=== PATIENT | male | born 1945 | race Caucasian/White ===

== ENCOUNTER 2020-11-04 06:54 | Outpatient (REF) | payer MEDICARE, SELFPAY ==
[2020-11-04 07:44] LABS: Anion Gap 16 (12-20); Blood Urea Nitrogen 21 mg/dL (9-16); Carbon Dioxide 24 mmol/L (22-29); Chloride 106 mmol/L (96-108); Estimated Glomerular Filt Rate > 60; Glucose Fasting 133 mg/dL (60-99); Potassium 4.8 mmol/l (3.3-5.1); Sodium 141 mmol/L (135-145)
[2020-11-04 07:53] LABS: Estimated Average Glucose 143 mg/dL; Hemoglobin A1c % 6.6 %
[2020-11-04 08:51] LABS: Creatinine Urine 112.08 mg/dL
== END 2020-11-04 06:55 | disposition home or self-care (01) ==
LOC: HO.LAB 06:54
PROVIDERS: Visit Provider Family Medicine
DX: I10 Essential (primary) hypertension (principal); E11.9 Type 2 diabetes mellitus without complications
CPT/HCPCS: 80051; 82043; 82565; 82947; 83036; 84520

== ENCOUNTER 2021-04-30 06:19 | Outpatient (REF) | payer MEDICARE, SELFPAY ==
[2021-04-30 07:43] LABS: Alanine Aminotransferase 10 U/L (0-40); Anion Gap 15 (12-20); Blood Urea Nitrogen 20 mg/dL (9-16); Carbon Dioxide 26 mmol/L (22-29); Chloride 107 mmol/L (96-108); Cholesterol 131 mg/dL; Estimated Glomerular Filt Rate > 60; Glucose Fasting 140 mg/dL (60-99); HDL Cholesterol 47 mg/dL; LDL Cholesterol Calculated 61 mg/dl; Potassium 4.8 mmol/L (3.3-5.1); Sodium 143 mmol/L (135-145); Triglycerides 118 mg/dL
[2021-04-30 07:49] LABS: Estimated Average Glucose 143 mg/dL; Hemoglobin A1c % 6.6 %
[2021-04-30 08:59] LABS: Creatinine Urine 108.01 mg/dL; Microalbum/Creatinine Ratio Ur 11.1 ug/mg cr
== END 2021-04-30 06:20 | disposition home or self-care (01) ==
LOC: HO.LAB 06:19
PROVIDERS: Absent Provider Internal Medicine Endocrinology, Diabetes & Metabolism; PCP Family Medicine; Visit Provider Family Medicine
DX: I10 Essential (primary) hypertension (principal); E78.00 Pure hypercholesterolemia, unspecified; E11.9 Type 2 diabetes mellitus without complications; Z79.899 Other long term (current) drug therapy
CPT/HCPCS: 36415; 80051; 80061; 82043; 82550; 82565; 82947; 83036; 84460; 84520

== ENCOUNTER 2021-10-24 06:21 | Outpatient (REF) | payer MEDICARE, SELFPAY ==
[2021-10-24 07:33] LABS: Estimated Average Glucose 154 mg/dL
[2021-10-24 07:38] LABS: Alanine Aminotransferase 15 U/L (0-40); Anion Gap 17 (12-20); Blood Urea Nitrogen 18 mg/dL (9-16); Carbon Dioxide 27 mmol/L (22-29); Chloride 105 mmol/L (96-108); Estimated Glomerular Filt Rate > 60; Glucose Fasting 135 mg/dL (60-99); Potassium 4.7 mmol/L (3.3-5.1); Sodium 144 mmol/L (135-145)
== END 2021-10-24 06:22 | disposition home or self-care (01) ==
LOC: HO.LAB 06:21
PROVIDERS: PCP Family Medicine; Visit Provider Family Medicine
DX: I10 Essential (primary) hypertension (principal); E11.9 Type 2 diabetes mellitus without complications; E78.00 Pure hypercholesterolemia, unspecified; Z79.899 Other long term (current) drug therapy
CPT/HCPCS: 36415; 80051; 82550; 82565; 82947; 83036; 84460; 84520

== ENCOUNTER 2021-11-19 12:45 | Outpatient (RCR) | payer MEDICARE, SELFPAY | END 2021-12-10 15:09 | disposition home or self-care (01) | LOC: HO.WCC 12:45 | PROVIDERS: PCP Family Medicine; Visit Provider Physician Assistant | DX: E11.622 Type 2 diabetes mellitus with other skin ulcer (principal); L97.312 Non-pressure chronic ulcer of right ankle with fat layer exposed; E11.40 Type 2 diabetes mellitus with diabetic neuropathy, unspecified; I10 Essential (primary) hypertension; Z79.84 Long term (current) use of oral hypoglycemic drugs; Z87.891 Personal history of nicotine dependence | CPT/HCPCS: 11042; 99212 ==

== ENCOUNTER 2021-12-15 14:42 | Outpatient (REF) | payer MEDICARE, SELFPAY ==
[2021-12-15 15:03] LABS: MANUAL DIFF FLAG NO
[2021-12-15 15:07] LABS: Basophils Percent Auto 0.3 % (0-2); Eosinophils Absolute Auto 0.3 X10*3/uL (0.0-0.4); Eosinophils Percent Auto 2.7 % (0-4); Hematocrit 37.8 % (42.0-52.0); Hemoglobin 11.8 g/dl (14.0-18.0); Imm Gran Abs Auto 0.05 X10*3/uL (0.00-0.03); Imm Gran Pct Auto 0.5 % (0.0-0.4); Lymphocytes Absolute Auto 1.4 X10*3/uL (1.2-4.9); Lymphocytes Percent Auto 14.8 % (20-40); Mean Corpuscular HGB Conc 31.2 g/dl (31.0-36.0); Mean Corpuscular Hemoglobin 25.8 pg (27.0-33.0); Mean Corpuscular Volume 82.7 fL (80.0-98.0); Mean Platelet Volume 8.8 fL (9.4-12.4); Monocytes Absolute Auto 0.9 X10*3/uL (0.1-1.2); Monocytes Percent Auto 9.8 % (2-11); Neutrophils Absolute Auto 6.6 x10*3/uL (2.0-8.3); Neutrophils Percent Auto 71.9 % (45-73); Platelet Count 281 X10*3/uL (160-400); Red Blood Count 4.57 X10*6/uL (4.60-5.80); Red Cell Distribution Width 16.7 % (11.0-16.0); White Blood Count 9.2 X10*3/uL (4.8-10.8)
[2021-12-15 15:30] LABS: Lactic Acid 2.4 mmol/L (0.5-2.0)
[2021-12-15 15:35] LABS: Appearance Urine CLEAR; Color Urine YELLOW; Glucose Urine UA >=1000 MG/DL (NEG); Leukocyte Esterase Urine NEG (NEG); Nitrite Urine NEG (NEG); PH 5.5 (5.0-8.0); Specific Gravity - Urine 1.015 (1.005-1.025); Urine Blood NEG (NEG); Urine Ketones NEG (NEG); Urine Protein NEG (NEG-TRACE)
[2021-12-15 15:48] LABS: Bacteria Urine TRACE /LPF; Mucus Urine 1+ /LPF; Squamous Epithelial Cell Urine TRACE /LPF
[2021-12-16 04:27] LABS: C Reactive Protein 3.08 mg/dL (< or = 0.50)
== END 2021-12-15 14:43 | disposition home or self-care (01) ==
LOC: HO.LAB 14:42
PROVIDERS: PCP Family Medicine; Visit Provider Family Medicine
DX: R50.9 Fever, unspecified (principal)
CPT/HCPCS: 36415; 81001; 83605; 85025; 86140; 87086

== ENCOUNTER 2021-12-16 13:29 | Outpatient (REF) | payer MEDICARE, SELFPAY ==
[2021-12-16 15:11] LABS: Blood Urea Nitrogen 24 mg/dL (9-16); Estimated Glomerular Filt Rate 57
== END 2021-12-16 13:30 | disposition home or self-care (01) ==
LOC: HO.LAB 13:29
PROVIDERS: PCP Family Medicine; Visit Provider Family Medicine
DX: I10 Essential (primary) hypertension (principal)
CPT/HCPCS: 36415; 82565; 84520

== ENCOUNTER 2021-12-18 11:10 | Outpatient (REF) | payer MEDICARE, SELFPAY ==
--- NOTE | ~2021-12-18 | MR_ITS ---
EXAMINATION: MR ANKLE WITHOUT AND WITH CONTRAST, RIGHT CLINICAL INFORMATION: Fever, right ankle ulcer. Diabetes mellitus. Evaluate for osteomyelitis. COMPARISON: X-rays of the right foot March 2008 TECHNIQUE: MRI of the ankle was performed before and after the intravenous administration of 10 mL Gadavist on a high-field scanner. [id number] includes the ankle, hindfoot and midfoot. Skin marker placed of the anterolateral aspect of the ankle. FINDINGS: Subcutaneous soft tissues: There is focal decreased T1, increased T2 signal with concomitant enhancement of the subcutaneous soft tissues overlying the distal fibula. This is compatible with focal cellulitis. Minimal circumferential edema in also present. Muscles and tendons: There is generalized increased T2 signal noted throughout most of the muscles of the visualized foot with associated atrophy and fatty infiltration. This is compatible with denervation myositis. Neurovascular structures/tarsal tunnel: Normal. Ligaments: Normal. Bone and articular cartilage: There is advanced osteoarthritis involving the 2nd through 4th tarsometatarsal joints manifested by subchondral cystic change, edema and cartilage loss with marginal osteophytes. Mild osteoarthritis of the 1st metatarsophalangeal joint. Advanced osteoarthritis of the medial aspect of the naviculocuneiform joints manifested by subchondral cystic change and edema. Plantar fascia: Normal. Bursa: Normal. MR/MR ankle RT wo/w con IMPRESSION: No evidence of osteomyelitis. Focal abnormality in the subcutaneous soft tissues overlying the fibula compatible with focal cellulitis. Advanced osteoarthritis in the midfoot where degenerative changes appear to have progressed compared with an x-ray performed 2007. 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 Cannot exclude infectious myositis but this latter entity is thought to be less likely.
== END 2021-12-18 11:11 | disposition home or self-care (01) ==
LOC: HO.MRI 11:10
PROVIDERS: Visit Provider Family Medicine
DX: M86.071 Acute hematogenous osteomyelitis, right ankle and foot (principal); E87.2 Acidosis; R50.9 Fever, unspecified
CPT/HCPCS: 73723; A9585

== ENCOUNTER 2021-12-22 12:18 | Outpatient (REF) | payer MEDICARE, SELFPAY ==
[2021-12-22 12:43] LABS: MANUAL DIFF FLAG NO
[2021-12-22 12:48] LABS: Basophils Percent Auto 0.6 % (0-2); Eosinophils Absolute Auto 0.2 X10*3/uL (0.0-0.4); Eosinophils Percent Auto 3.3 % (0-4); Hematocrit 37.9 % (42.0-52.0); Hemoglobin 11.7 g/dl (14.0-18.0); Imm Gran Abs Auto 0.04 X10*3/uL (0.00-0.03); Imm Gran Pct Auto 0.6 % (0.0-0.4); Lymphocytes Absolute Auto 1.6 X10*3/uL (1.2-4.9); Lymphocytes Percent Auto 21.7 % (20-40); Mean Corpuscular HGB Conc 30.9 g/dl (31.0-36.0); Mean Corpuscular Hemoglobin 25.4 pg (27.0-33.0); Mean Corpuscular Volume 82.2 fL (80.0-98.0); Mean Platelet Volume 8.6 fL (9.4-12.4); Monocytes Absolute Auto 0.8 X10*3/uL (0.1-1.2); Monocytes Percent Auto 10.6 % (2-11); Neutrophils Absolute Auto 4.6 x10*3/uL (2.0-8.3); Neutrophils Percent Auto 63.2 % (45-73); Platelet Count 269 X10*3/uL (160-400); Red Blood Count 4.61 X10*6/uL (4.60-5.80); Red Cell Distribution Width 16.5 % (11.0-16.0); White Blood Count 7.2 X10*3/uL (4.8-10.8)
[2021-12-22 12:57] LABS: Lactic Acid 1.9 mmol/L (0.5-2.0)
== END 2021-12-22 12:19 | disposition home or self-care (01) ==
LOC: HO.LAB 12:18
PROVIDERS: PCP Family Medicine; Visit Provider Family Medicine
DX: A41.9 Sepsis, unspecified organism (principal)
CPT/HCPCS: 36415; 83605; 85025; 86140

== ENCOUNTER 2022-01-15 12:39 | Outpatient (RCR) | payer MEDICARE, SELFPAY | END 2022-02-27 16:02 | disposition home or self-care (01) | LOC: HO.WCC 12:39 | PROVIDERS: PCP Family Medicine; Visit Provider Surgery | DX: E11.621 Type 2 diabetes mellitus with foot ulcer (principal); L97.312 Non-pressure chronic ulcer of right ankle with fat layer exposed; E11.40 Type 2 diabetes mellitus with diabetic neuropathy, unspecified; I10 Essential (primary) hypertension; I25.2 Old myocardial infarction; Z87.891 Personal history of nicotine dependence | CPT/HCPCS: 97597; 99212 ==

== ENCOUNTER 2022-05-19 06:12 | Outpatient (REF) | payer MEDICARE, SELFPAY ==
[2022-05-19 06:24] LABS: MANUAL DIFF FLAG NO
[2022-05-19 07:52] LABS: Basophils Percent Auto 0.7 % (0-2); Eosinophils Absolute Auto 0.3 X10*3/uL (0.0-0.4); Eosinophils Percent Auto 4.8 % (0-4); Hematocrit 39.1 % (42.0-52.0); Hemoglobin 11.9 g/dl (14.0-18.0); Imm Gran Abs Auto 0.02 X10*3/uL (0.00-0.03); Imm Gran Pct Auto 0.4 % (0.0-0.4); Lymphocytes Absolute Auto 1.6 X10*3/uL (1.2-4.9); Mean Corpuscular HGB Conc 30.4 g/dl (31.0-36.0); Mean Corpuscular Hemoglobin 25.3 pg (27.0-33.0); Mean Platelet Volume 9.6 fL (9.4-12.4); Monocytes Absolute Auto 0.6 X10*3/uL (0.1-1.2); Monocytes Percent Auto 11.3 % (2-11); Neutrophils Absolute Auto 3.1 x10*3/uL (2.0-8.3); Neutrophils Percent Auto 54.8 % (45-73); Platelet Count 218 X10*3/uL (160-400); Red Blood Count 4.71 X10*6/uL (4.60-5.80); Red Cell Distribution Width 17.5 % (11.0-16.0); White Blood Count 5.7 X10*3/uL (4.8-10.8)
[2022-05-19 08:00] LABS: Estimated Average Glucose 143 mg/dL; Hemoglobin A1c % 6.6 %
[2022-05-19 08:27] LABS: Anion Gap 16 (12-20); Blood Urea Nitrogen 19 mg/dL (9-16); Carbon Dioxide 27 mmol/L (22-29); Chloride 105 mmol/L (96-108); Estimated Glomerular Filt Rate > 60; Glucose Fasting 150 mg/dL (60-99); Potassium 4.5 mmol/L (3.3-5.1); Sodium 143 mmol/L (135-145)
[2022-05-19 08:28] LABS: Alanine Aminotransferase 17 U/L (0-40); Albumin Level 4.4 g/dL (3.5-5.0); Alkaline Phosphatase 76 U/L (39-117); Aspartate Amino Transferase 18 U/L (5-37); Bilirubin Total 0.6 mg/dL (0.0-1.0); Calcium 9.1 mg/dL (8.4-10.2); Total Protein 7.3 g/dL (6.5-8.0)
== END 2022-05-19 06:13 | disposition home or self-care (01) ==
LOC: HO.LAB 06:12
PROVIDERS: PCP Family Medicine; Visit Provider Family Medicine
DX: I10 Essential (primary) hypertension (principal); G62.9 Polyneuropathy, unspecified; E11.9 Type 2 diabetes mellitus without complications; E78.00 Pure hypercholesterolemia, unspecified; Z79.899 Other long term (current) drug therapy
CPT/HCPCS: 36415; 80053; 83036; 85025

== ENCOUNTER 2022-07-27 13:11 | Outpatient (REF) | payer MEDICARE, SELFPAY ==
--- NOTE | ~2022-07-27 | US_ITS ---
EXAMINATION: Noninvasive assessment of the bilateral lower extremities CLINICAL INFORMATION: Nonhealing wound of the right foot TECHNIQUE: Duplex Doppler techniques with waveform analysis and measurement of velocities in the bilateral common femoral, profunda femoris, superficial femoral, popliteal and tibial arteries were performed. COMPARISON: None FINDINGS: DIRECT DUPLEX DOPPLER FINDINGS: RIGHT LEG: Common femoral artery: 106 cm/s, phasicity: Triphasic Profunda femoris artery: 51.1 cm/s, phasicity: Triphasic Superficial femoral artery (proximal): 93.8 cm/s, phasicity: Triphasic Superficial femoral artery (mid): 89.1 cm/s, phasicity: Triphasic Superficial femoral artery (distal): 62.1 cm/s, phasicity: Triphasic Popliteal artery: 45.6 cm/s, phasicity: Triphasic Posterior tibial artery: 105 cm/s, phasicity: Triphasic Peroneal artery: 66.4 cm/s, phasicity: Triphasic US/US arterial duplex LE RT IMPRESSION: Normal arterial duplex
== END 2022-07-27 13:12 | disposition home or self-care (01) ==
LOC: HO.US 13:11
PROVIDERS: Visit Provider Family Medicine
DX: S91.301S Unspecified open wound, right foot, sequela (principal); E11.42 Type 2 diabetes mellitus with diabetic polyneuropathy
CPT/HCPCS: 93926

== ENCOUNTER 2022-09-14 12:06 | Outpatient (REF) | payer MEDICARE, SELFPAY ==
[2022-09-14 13:58] LABS: Prostate Specific Antigen 1.45 ng/mL (<0.05-4.0)
== END 2022-09-14 12:07 | disposition home or self-care (01) ==
LOC: HO.LAB 12:06
PROVIDERS: PCP Family Medicine; Visit Provider Family Medicine
DX: Z12.5 Encounter for screening for malignant neoplasm of prostate (principal); R35.1 Nocturia; N40.0 Benign prostatic hyperplasia without lower urinary tract symptoms
CPT/HCPCS: 36415; 84153

== ENCOUNTER 2022-10-19 08:45 | Outpatient (RCR) | payer MEDICARE, SELFPAY | END 2022-10-27 11:48 | disposition home or self-care (01) | LOC: HO.WCC 08:45 | PROVIDERS: PCP Family Medicine; Visit Provider Physician Assistant | DX: E11.621 Type 2 diabetes mellitus with foot ulcer (principal); L97.512 Non-pressure chronic ulcer of other part of right foot with fat layer exposed; E11.40 Type 2 diabetes mellitus with diabetic neuropathy, unspecified; I10 Essential (primary) hypertension; L84 Corns and callosities; Z79.84 Long term (current) use of oral hypoglycemic drugs; Z87.891 Personal history of nicotine dependence | CPT/HCPCS: 97597; 99212 ==

== ENCOUNTER 2022-11-23 06:41 | Outpatient (REF) | payer MEDICARE, SELFPAY ==
[2022-11-23 08:26] LABS: Estimated Average Glucose 146 mg/dL; Hemoglobin A1c % 6.7 %
[2022-11-23 08:51] LABS: Alanine Aminotransferase 13 U/L (0-40); Anion Gap 16 (12-20); Aspartate Amino Transferase 16 U/L (5-37); Blood Urea Nitrogen 22 mg/dL (9-16); Carbon Dioxide 27 mmol/L (22-29); Chloride 105 mmol/L (96-108); Estimated Glomerular Filt Rate > 60; Glucose Fasting 147 mg/dL (60-99); Potassium 4.3 mmol/L (3.3-5.1); Sodium 144 mmol/L (135-145)
== END 2022-11-23 06:42 | disposition home or self-care (01) ==
LOC: HO.LAB 06:41
PROVIDERS: PCP Family Medicine; Visit Provider Family Medicine
DX: I10 Essential (primary) hypertension (principal); E11.9 Type 2 diabetes mellitus without complications; E78.00 Pure hypercholesterolemia, unspecified; Z79.899 Other long term (current) drug therapy
CPT/HCPCS: 36415; 80051; 82550; 82565; 82947; 83036; 84450; 84460; 84520

== ENCOUNTER 2022-12-07 12:32 | Outpatient (REF) | payer MEDICARE, SELFPAY ==
--- NOTE | ~2022-12-07 | XR_ITS ---
EXAMINATION: XR CHEST CLINICAL INFORMATION: Cough and wheezing COMPARISON: None TECHNIQUE: 2 views of the chest were obtained. FINDINGS: The lungs are well-expanded and clear of acute process. The heart size and pulmonary vascularity is normal. There is moderate size hiatal hernia. No gross bony abnormality seen. XR/XR chest 2V IMPRESSION: 1. No acute cardiopulmonary process seen. 2. Moderate size hiatal hernia.
== END 2022-12-07 12:33 | disposition home or self-care (01) ==
LOC: HO.XRAY 12:32
PROVIDERS: PCP Family Medicine; Visit Provider Family Medicine
DX: R05.9 Cough, unspecified (principal); R06.2 Wheezing
CPT/HCPCS: 71046

== ENCOUNTER 2023-05-28 06:26 | Outpatient (REF) | payer MEDICARE, SELFPAY ==
[2023-05-28 08:54] LABS: Estimated Average Glucose 143 mg/dL; Hemoglobin A1c % 6.6 %
[2023-05-28 09:29] LABS: Alanine Aminotransferase 12 U/L (0-40); Anion Gap 18 (12-20); Aspartate Amino Transferase 16 U/L (5-37); Blood Urea Nitrogen 27 mg/dL (9-16); Carbon Dioxide 21 mmol/L (22-29); Chloride 104 mmol/L (96-108); Cholesterol 130 mg/dL; Estimated Glomerular Filt Rate 54; Glucose Fasting 129 mg/dL (60-99); HDL Cholesterol 45 mg/dL; LDL Cholesterol Calculated 58 mg/dl; Sodium 138 mmol/L (135-145); Triglycerides 135 mg/dL
== END 2023-05-28 06:27 | disposition home or self-care (01) ==
LOC: HO.LAB 06:26
PROVIDERS: PCP Family Medicine; Visit Provider Family Medicine
DX: I10 Essential (primary) hypertension (principal); E11.9 Type 2 diabetes mellitus without complications; E78.00 Pure hypercholesterolemia, unspecified; Z79.899 Other long term (current) drug therapy
CPT/HCPCS: 36415; 80051; 80061; 82550; 82565; 82947; 83036; 84450; 84460; 84520

== ENCOUNTER 2023-08-20 10:40 | Outpatient (REF) | payer MEDICARE, SELFPAY ==
--- NOTE | 2023-08-20 10:43 | EMG_ITS ---
Chief complaint: 6-year-old, Poor stability, feet numbness, chronic back pain History of diabetes, lumbar surgery for removal of cyst per patient Reason for referral: Evaluate for neuropathy Referred by: Dr. Abelardo Araujo Procedure done: Bilateral lower extremity NCS/EMG Precautions and/or limitations: None The limb temperature was monitored continuously and remained between 32-36 degrees C during the performance of the NCS. Nerve Conduction Studies Anti Sensory Summary Table ?Stim Site NR Onset (ms) Norm Onset (ms) Peak (ms) Norm Peak (ms) O-P Amp (?V) Norm O-P Amp Site1 Site2 Delta-0 (ms) Dist (cm) Cristopher (m/s) Norm Cristopher (m/s) Left Sural Anti Sensory (Lat Mall) Calf NR <4.0 >5.0 Calf Lat Mall 14.0 Right Sural Anti Sensory (Lat Mall) Calf NR <4.0 >5.0 Calf Lat Mall 14.0 Motor Summary Table ?Stim Site NR Onset (ms) Norm Onset (ms) O-P Amp (mV) Norm O-P Amp iAmp (mV) Amp (1st) (%) Site1 Site2 Delta-0 (ms) Dist (cm) Cristopher (m/s) Norm Cristopher (m/s) Right Peroneal Motor (Ext Dig Brev) Ankle NR <4.0 >2.5 Ankle Ext Dig Brev 0.0 B Fib NR B Fib Ankle 0.0 >40 Poplt NR Poplt B Fib 0.0 >40 Left Tibial Motor (Abd Bundy Brev) Ankle NR <5 >2.5 Ankle Abd Bundy Brev 0.0 Knee NR Knee Ankle 0.0 >40 Right Tibial Motor (Abd Bundy Brev) Ankle NR <5 >2.5 Ankle Abd Bundy Brev 0.0 Knee NR Knee Ankle 0.0 >40 EMG ?Side Muscle Nerve Root Ins Act Fibs Psw Amp Dur Poly Recrt Int Pat Comment Right AbdHallucis MedPlantar S1-2 Nml Nml Nml Nml Nml 0 Nml Complete Right AntTibialis Dp Br Peron L4-5 Nml Nml Nml Nml Nml 0 Nml Complete Right PostTibialis Tibial L5, S1 Nml Nml Nml Nml Nml 0 Nml Complete Right MedGastroc Tibial S1-2 Nml Nml Nml Nml Nml 0 Nml Complete Right VastusMed Femoral L2-4 Nml Nml Nml Nml Nml 0 Nml Complete Left AbdHallucis MedPlantar S1-2 Nml Nml Nml Nml Nml 0 Nml Complete Left AntTibialis Dp Br Peron L4-5 Nml Nml Nml Incr Incr 0 Nml Complete Left PostTibialis Tibial L5, S1 Nml Nml Nml Incr Incr 0 Nml Complete Left MedGastroc Tibial S1-2 Nml Nml Nml Nml Nml 0 Nml Complete Left VastusMed Femoral L2-4 Nml Nml Nml Nml Nml 0 Nml Complete FINDINGS: No responses from bilateral peroneal nerve, right tibial nerve, bilateral sural nerves. Concentric needle EMG was performed in selected muscles of the bilateral lower extremity. Study revealed Signs of electric abnormalities as shown in the table below. Left anterior tibialis and posterior tibialis muscles showed chronic reinnervation changes. IMPRESSION: 1. This is an abnormal study. 2. 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 3. There is electrodiagnostic findings suggestive of chronic left L5-S1 radiculopathy. CLINICAL COMMENT: Consider effects of age on NCS results when interpreting this study.. Thank you for your kind referral. Yohana Russ MD, RAFFI Board Certified, [place] [employer] (ABPMR) Board Certified, [place] [employer] (ABEM) CODIN 21231 x 2 MTDD
== END 2023-08-20 10:41 | disposition home or self-care (01) ==
LOC: HO.NEURO 10:40
PROVIDERS: PCP Family Medicine; Visit Provider Family Medicine
DX: G11.19 Other early-onset cerebellar ataxia (principal); R53.1 Weakness
CPT/HCPCS: 95886; 95909

== ENCOUNTER → 2023-08-20 10:43 | Outpatient (BNV) | payer MEDICARE, SELFPAY | PROVIDERS: PCP Family Medicine; Visit Provider Physical Medicine & Rehabilitation | DX: G62.89 Other specified polyneuropathies (principal); M54.17 Radiculopathy, lumbosacral region | CPT/HCPCS: 95886; 95909 ==

== ENCOUNTER 2024-01-26 06:02 | Outpatient (REF) | payer MEDICARE, SELFPAY ==
[2024-01-26 06:18] LABS: MANUAL DIFF FLAG NO
[2024-01-26 07:37] LABS: Basophils Percent Auto 0.5 % (0-2); Eosinophils Absolute Auto 0.3 X10*3/uL (0.0-0.4); Hematocrit 37.7 % (42.0-52.0); Hemoglobin 11.5 g/dl (14.0-18.0); Imm Gran Abs Auto 0.03 X10*3/uL (0.00-0.03); Imm Gran Pct Auto 0.5 % (0.0-0.4); Lymphocytes Absolute Auto 1.8 X10*3/uL (1.2-4.9); Lymphocytes Percent Auto 28.8 % (20-40); Mean Corpuscular HGB Conc 30.5 g/dl (31.0-36.0); Mean Platelet Volume 9.4 fL (9.4-12.4); Monocytes Absolute Auto 0.7 X10*3/uL (0.1-1.2); Neutrophils Absolute Auto 3.5 x10*3/uL (2.0-8.3); Neutrophils Percent Auto 55.2 % (45-73); Platelet Count 265 X10*3/uL (160-400); Red Cell Distribution Width 17.7 % (11.0-16.0); White Blood Count 6.3 X10*3/uL (4.8-10.8)
[2024-01-26 07:43] LABS: Estimated Average Glucose 143 mg/dL; Hemoglobin A1c % 6.6 % (<6.0)
[2024-01-26 07:58] LABS: Alanine Aminotransferase 12 U/L (0-40); Anion Gap 18 (12-20); Aspartate Amino Transferase 14 U/L (5-37); Blood Urea Nitrogen 20 mg/dL (9-16); Carbon Dioxide 24 mmol/L (22-29); Chloride 107 mmol/L (96-108); Estimated Glomerular Filt Rate > 60; Glucose Fasting 133 mg/dL (60-99); Potassium 4.9 mmol/L (3.3-5.1); Sodium 144 mmol/L (135-145)
[2024-01-26 08:08] LABS: T4 Thyroxine 7.3 ug/dL (4.5-12.0)
[2024-01-26 09:29] LABS: Creatinine Urine 107.29 mg/dL; Microalbum/Creatinine Ratio Ur 9.3 ug/mg cr (<30)
== END 2024-01-26 06:03 | disposition home or self-care (01) ==
LOC: HO.LAB 06:02
PROVIDERS: PCP Family Medicine; Visit Provider Family Medicine
DX: E11.9 Type 2 diabetes mellitus without complications (principal); I10 Essential (primary) hypertension; R53.83 Other fatigue; E78.00 Pure hypercholesterolemia, unspecified; Z79.899 Other long term (current) drug therapy
CPT/HCPCS: 36415; 80051; 82043; 82550; 82565; 82570; 82947; 83036; 84436; 84450; 84460; 84520; 85025

== ENCOUNTER 2024-02-09 11:54 | Outpatient (REF) | payer MEDICARE, SELFPAY ==
[2024-02-09 12:13] LABS: MANUAL DIFF FLAG NO
[2024-02-09 13:43] LABS: Basophils Percent Auto 0.7 % (0-2); Eosinophils Absolute Auto 0.2 X10*3/uL (0.0-0.4); Eosinophils Percent Auto 2.6 % (0-4); Hematocrit 36.8 % (42.0-52.0); Hemoglobin 11.2 g/dl (14.0-18.0); Imm Gran Abs Auto 0.03 X10*3/uL (0.00-0.03); Imm Gran Pct Auto 0.5 % (0.0-0.4); Immature Retic Fraction 28.1 % (2.3-13.4); Lymphocytes Absolute Auto 1.4 X10*3/uL (1.2-4.9); Lymphocytes Percent Auto 23.7 % (20-40); Mean Corpuscular HGB Conc 30.4 g/dl (31.0-36.0); Mean Corpuscular Hemoglobin 25.1 pg (27.0-33.0); Mean Corpuscular Volume 82.5 fL (80.0-98.0); Mean Platelet Volume 9.3 fL (9.4-12.4); Monocytes Absolute Auto 0.7 X10*3/uL (0.1-1.2); Monocytes Percent Auto 11.7 % (2-11); Neutrophils Absolute Auto 3.7 x10*3/uL (2.0-8.3); Neutrophils Percent Auto 60.8 % (45-73); Platelet Count 255 X10*3/uL (160-400); Red Blood Count 4.46 X10*6/uL (4.60-5.80); Retic HGB Equivalent 26.7 pg (30.0-35.0); Reticulocyte Percent 1.6 % (0.5-1.8); Reticulocytes Absolute 0.069 X10*6/uL (0.026-0.095); White Blood Count 6.1 X10*3/uL (4.8-10.8)
[2024-02-09 14:09] LABS: C Reactive Protein 0.13 mg/dL (< or = 0.50); Iron 36 mcg/dL (45-160); Percent Iron Saturation 9 % (15-50); Total Iron Binding Capacity 397 mcg/dL (228-428); Unsaturated Iron Binding 361 ug/dL
[2024-02-09 14:23] LABS: Erythrocyte Sedimentation Rate 20 MM/HR (0-15)
[2024-02-09 14:28] LABS: Ferritin 11 ng/mL (20-250)
[2024-02-09 14:30] LABS: Folate 17.6 ng/mL (> or = 4.0); Vitamin B12 268 pg/mL (200-900)
== END 2024-02-09 11:55 | disposition home or self-care (01) ==
LOC: HO.LAB 11:54
PROVIDERS: PCP Family Medicine; Visit Provider Family Medicine
DX: D64.9 Anemia, unspecified (principal); R06.02 Shortness of breath
CPT/HCPCS: 36415; 82607; 82728; 82746; 83540; 85025; 85045; 85652; 86140

== ENCOUNTER 2024-03-13 14:57 | Outpatient (REF) | payer MEDICARE, SELFPAY ==
--- NOTE | ~2024-03-13 | XR_ITS ---
EXAMINATION: XR CHEST CLINICAL INFORMATION: Rales and cough COMPARISON: Chest radiograph 12/07/2022 TECHNIQUE: 2 views of the chest were obtained. FINDINGS: Enlarged pulmonary arteries. Lingular atelectasis. No pleural effusion. Unchanged hiatal hernia. No focal consolidation. No pneumothorax. XR/XR chest 2V IMPRESSION: No focal consolidation to suggest pneumonia.
[2024-03-13 15:15] LABS: MANUAL DIFF FLAG NO
[2024-03-13 16:13] LABS: Basophils Absolute Auto 0.1 X10*3/uL (0.0-0.2); Basophils Percent Auto 0.8 % (0-2); Eosinophils Absolute Auto 0.1 X10*3/uL (0.0-0.4); Hematocrit 40.7 % (42.0-52.0); Hemoglobin 12.7 g/dl (14.0-18.0); Imm Gran Abs Auto 0.03 X10*3/uL (0.00-0.03); Imm Gran Pct Auto 0.4 % (0.0-0.4); Lymphocytes Absolute Auto 1.5 X10*3/uL (1.2-4.9); Lymphocytes Percent Auto 21.5 % (20-40); Mean Corpuscular HGB Conc 31.2 g/dl (31.0-36.0); Mean Corpuscular Hemoglobin 27.8 pg (27.0-33.0); Mean Corpuscular Volume 89.1 fL (80.0-98.0); Mean Platelet Volume 9.4 fL (9.4-12.4); Monocytes Absolute Auto 0.7 X10*3/uL (0.1-1.2); Monocytes Percent Auto 9.5 % (2-11); Neutrophils Absolute Auto 4.6 x10*3/uL (2.0-8.3); Neutrophils Percent Auto 65.8 % (45-73); Platelet Count 242 X10*3/uL (160-400); Red Blood Count 4.57 X10*6/uL (4.60-5.80); Red Cell Distribution Width 22.3 % (11.0-16.0); White Blood Count 7.1 X10*3/uL (4.8-10.8)
[2024-03-13 17:02] LABS: Iron 32 mcg/dL (45-160); Percent Iron Saturation 9 % (15-50); Total Iron Binding Capacity 351 mcg/dL (228-428); Unsaturated Iron Binding 319 ug/dL
[2024-03-14 14:43] LABS: Prot Elec - Alpha1 0.3 g/dL (0.2-0.3); Prot Elec - Alpha2 0.9 g/dL (0.5-0.9); Prot Elec - Beta 1 0.6 g/dL (0.4-0.6); Prot Elec - Beta 2 0.6 g/dL (0.2-0.5); Prot Elec - Gamma 0.8 g/dL (0.8-1.7); Prot Elec - Total Protein 7.2 g/dL (6.1-8.1)
== END 2024-03-13 14:58 | disposition home or self-care (01) ==
LOC: HO.LAB 14:57
PROVIDERS: PCP Family Medicine; Visit Provider Family Medicine
DX: D64.9 Anemia, unspecified (principal); G62.9 Polyneuropathy, unspecified; J32.9 Chronic sinusitis, unspecified
CPT/HCPCS: 36415; 71046; 83540; 84165; 85025

== ENCOUNTER 2024-06-19 06:32 | Outpatient (REF) | payer MEDICARE, SELFPAY ==
[2024-06-19 06:51] LABS: MANUAL DIFF FLAG NO
[2024-06-19 06:58] LABS: Basophils Percent Auto 0.5 % (0-2); Eosinophils Absolute Auto 0.2 X10*3/uL (0.0-0.4); Eosinophils Percent Auto 3.9 % (0-4); Hematocrit 44.4 % (42.0-52.0); Hemoglobin 14.9 g/dl (14.0-18.0); Imm Gran Abs Auto 0.04 X10*3/uL (0.00-0.03); Imm Gran Pct Auto 0.6 % (0.0-0.4); Lymphocytes Absolute Auto 1.7 X10*3/uL (1.2-4.9); Lymphocytes Percent Auto 28.1 % (20-40); Mean Corpuscular HGB Conc 33.6 g/dl (31.0-36.0); Mean Corpuscular Volume 95.3 fL (80.0-98.0); Mean Platelet Volume 9.3 fL (9.4-12.4); Monocytes Absolute Auto 0.7 X10*3/uL (0.1-1.2); Neutrophils Absolute Auto 3.5 x10*3/uL (2.0-8.3); Neutrophils Percent Auto 55.9 % (45-73); Platelet Count 177 X10*3/uL (160-400); Red Blood Count 4.66 X10*6/uL (4.60-5.80); White Blood Count 6.2 X10*3/uL (4.8-10.8)
[2024-06-19 07:15] LABS: Anion Gap 15 (12-20); Blood Urea Nitrogen 22 mg/dL (9-16); Carbon Dioxide 27 mmol/L (22-29); Chloride 107 mmol/L (96-108); Estimated Glomerular Filt Rate 60; Glucose Fasting 145 mg/dL (60-99); Iron 107 mcg/dL (45-160); Percent Iron Saturation 33 % (15-50); Potassium 4.8 mmol/L (3.3-5.1); Sodium 144 mmol/L (135-145); Total Iron Binding Capacity 329 mcg/dL (228-428); Unsaturated Iron Binding 222 ug/dL
== END 2024-06-19 06:33 | disposition home or self-care (01) ==
LOC: HO.LAB 06:32
PROVIDERS: PCP Family Medicine; Visit Provider Family Medicine
DX: E11.9 Type 2 diabetes mellitus without complications (principal); I10 Essential (primary) hypertension; D50.9 Iron deficiency anemia, unspecified
CPT/HCPCS: 36415; 80051; 82565; 82947; 83540; 84520; 85025

== ENCOUNTER 2024-09-28 07:35 | Outpatient (REF) | payer MEDICARE, SELFPAY ==
[2024-09-28 08:36] LABS: Leukocytes Stool Qualitative NEGATIVE (NEGATIVE)
[2024-09-28 12:40] LABS: Adenovirus F 40/41 Not Detected (Not Detect.); Astrovirus Not Detected (Not Detect.); Campylobacter Not Detected (Not Detect.); Cryptosporidium Not Detected (Not Detect.); Cyclospora cayetanensis Not Detected (Not Detect.); E. coli EAEC Not Detected (Not Detect.); E. coli EPEC Not Detected (Not Detect.); E. coli ETEC Not Detected (Not Detect.); E. coli STEC Not Detected (Not Detect.); Entamoeba histolytica Not Detected (Not Detect.); Giardia lamblia Not Detected (Not Detect.); Norovirus GI/GII Not Detected (Not Detect.); Plesiomonas shigelloides Not Detected (Not Detect.); Rotavirus A Not Detected (Not Detect.); Salmonella Not Detected (Not Detect.); Sapovirus Not Detected (Not Detect.); Shigella sp./EIEC Not Detected (Not Detect.); Vibrio Not Detected (Not Detect.); Vibrio Cholerae Not Detected (Not Detect.); Yersinia enterocolitica Not Detected (Not Detect.)
[2024-10-02 21:32] LABS: Fecal Fat Qualitative Normal (Normal)
[2024-10-07 17:23] LABS: Pancreatic Elastase-1 >800 mcg/g (>200)
== END 2024-09-28 07:36 | disposition home or self-care (01) ==
LOC: HO.LNP 07:35
PROVIDERS: Visit Provider Internal Medicine Gastroenterology
DX: R19.7 Diarrhea, unspecified (principal)
CPT/HCPCS: 82656; 82705; 87177; 87209; 87507; 89055

== ENCOUNTER 2025-01-18 08:03 | Outpatient (REF) | payer MEDICARE, SELFPAY ==
--- OUTSIDE RECORDS SUMMARY | 2025-01-18 08:11 | XMS_ITS ---
Author Organization [facility] Address [address] [place] [address] Care Team Providers Care Truck Washer Name Role Phone Abelardo Araujo MD Primary Care Provider Unavailab Elaine Baca Unavailable [phone] REASON FOR VISIT small toe L foot nail is coming off Encounters Encounter Location Date Provider Diagnosis [address] [phone] 12/27/2024 Elaine Oliva Plan Of Treatment Next Appt Details Provider Name:Elaine stockton, 02/23/2025 11:45:00 AM, [address] [place] [address], [phone], Provider Name:Elaine stockton, 03/28/2025 03:30:00 PM, [address] [place] [address], [phone], Progress Notes * Julian LOVEDOB:[birth year] (79 yo M)Acc No.[id number]:12/27/2024 Patient:?Julian LOVE :1945???Age:79 Y???Sex:Male Address:[address] [place] [address] [place], [address] * true * Date:? Generated for Printi ng/Faxing/eTransmitting on:?01/18/2025 08:11 AM EDT
--- OUTSIDE RECORDS SUMMARY | 2025-01-18 08:11 | XMS_ITS | Continuity of Care Document ---
Author Organization [facility] [address] [facility] [address] [place] [address] Phone [phone] Care Team Providers Care Clinical Trials Manager Name Role Phone Abelardo Araujo M.D. Care Team Information Receive r [phone] Problems Active Problems Provider Date Type 2 [...] SIG Qnty Indications Order ing Provider Date Upfvbpqw9hz/0.5ML Solution Auto-Inject inject 0.5 milliliters weekly 2ml Rah Nichols M.D. 12/05/2024 Cjuuxo14rz Capsules 1 tab by mouth at bed 90caps Rah Nichols M.D. 02/26/2023 Atorvastatin Wdicsks29kw Tablets 1 tab by mouth every evening 270tabs Dora Jade MD Clonazepam0.5mg Tablets 1/2 tab by mouth at bed time 60tabs Abelardo Araujo M.D. Lnxtrdhtg19pz Tablets Take One Tablet By Mouth Every Morning 90tabs Rah Nichols M.D. Nifedipine ER30mg Tablets ER 24HR 1 tab by mouth every day Abelardo Araujo M.D. Quinapril RQP58kg Tablets 1 tabs by mouth every day [...] Facility Test Result H/L Range N ote Glucose Fingerstick 12/05/2024 Inhouse Glucose Fingerstick 142 Hemoglobin A1c 12/05/2024 Inhouse Hemoglobin A1c 7.3% Glucose Fingerstick 08/01/2024 Inhouse Glucose Fingerstick 185 Hemoglobin A1c 08/01/2024 Inhouse Hemoglobin A1c 6.6 % Glucose Fingerstick 03/28/2024 Inhouse Glucose Fingerstick 151 Glucose Fingerstick 08/31/2023 Inhouse Glucose Fingerstick 127 Glucose Fingerstick 02/26/2023 Inhouse Glucose Fingerstick 145 Hemoglobin A1c 10/28/2022 [facility] Hemoglobin A1c 6.8 % High (4.0-5.6) 1 Glucose Fingerstick 10/28/2022 Inhouse Glucose Fingerstick 165 Glucose Fingerstick 06/23/2022 Inhouse Glucose Fingerstick 124 1 MONITORING: In known diabetic patients, hemoglobin A1c targets should be discussed with health care provider. DIAGNOSTIC USE: The [place] [employer] (ADA) and the World Health [...]
--- OUTSIDE RECORDS SUMMARY | 2025-01-18 08:11 | XMS_ITS ---
Author Organization [facility] Address [address] [place] [address] Care Team Providers Care Die Reamer Name Role Phone Abelardo Araujo MD Primary Care Provider Elaine Esposito Unavailable [phone] Allergies Allergen (clinical drug ingredient) Drug/Non Drug Allergy documented on EMR Reaction Allergy Type Onset Date Status Bactrim hives Drug Allergy Active codeine Codeine [...] Polyneuropathy due to diabetes mellitus type I (556772030) Type 1 diabetes mellitus with diabetic polyneuropathy (E10.42) Active confirmed Vital Signs Height 6 ft in 12/27/2024 Weight 255 lbs 12/27/2024 BMI 34.58 kg/m2 12/27/2024 Blood pressure systolic 117 mm Hg 12/27/19 25 Blood pressure diastolic 72 mm Hg 025 Encounters Encounter Location Date Provider Diagnosis [facility] [address] [phone] 12/27/2024 Elaine Oliva Type 2 diabetes mellitus [...] Reason: Provider Name:Elaine stockton, 02/23/2025 11:45:00 AM, [address] [place] [address], [phone], Provider Name:Elaine stockton, 03/28/2025 03:30:00 PM, [address] [place] [address], [phone], Procedure Notes * Category Sub-Category Detail Notes [...] and future surgical procedures to prevent recurrence (66368) Anesthesia was deferred - NEURO ROSLYN: patient [...] instrumentation by the physician of record - 12209 Debride Nails 1-5 Procedure: Due to the [...] necessary to maintain effective symptomatic relief - 67664 Nail Reduction Nail Reduction (-27) Trimming o [...] * Julian LOVEDOB:[birth year] (79 yo M)Acc No.[id number]:12/27/2024 Progress Note Patient:?Julian LOVE Provider:?Elaine Oliva DPM :1945???Age:79 Y???Sex:Male Vitaliy e:12/27/2024 Address:[address] [place], [place] [phone] Pcp:Abelardo Araujo MD Subjective: * Chief Complaints: [...] rouble?denies.?Confusion?denies.?Fainting/blackouts?denies.?Tingling?admits.?Jonas mors?denies.? * Medical History:? * Surgical History:?alexander wilkes er 1995 * Hospitalization/Major Diagno stic Procedure:?Denies Past Hospitalization * Family History:?Mother: dece ased.?Father: , diagnosed with Unspecified heart disease, Diabetic - NIDDM.? * Social History:?Tobacco Use:?Tobacco use other than smoking?Are you an other tobacco user??No ?Tobacco Control (Standard)?Tobacco use:?Nonsmoker ???Miscellaneous:?Caffeine: no. ?Children: yes, 4. ?Exercise: yes, walking. ?Marital status: . 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 * Medications:?TakingMounjaro Iron clonazePAM 0.5 MG Tablet [...] * Vitals:?Ht: 6 ft, Wt: 255, B SC: 34.58, Shoe size: 11B, BP: 117/72 mm [...] necessary to maintain effective symptomatic relief - 87033.?Keratoma Treatment:?Parring or Cutting of Benign Hyperkeratotic Lesion(s)?(-56) [...] instrumentation by the physician of record - 93082.?Nail Avulsion:?Location?Total nail, T4.?Anesthesia?was deferred - NEUROPATHY: patient [...] and future surgical procedures to prevent recurrence (52079).?Nail Reduction:?Nail Reduction?(-27) Trimming of all dystrophic nails [...] ?), were debrided by the phisician of record to reduce/remove overall nail length and girth, by manual and electrical means with use of a nail nipper and/or dremel, to more viable healthy nail plate or bed tissue - G0127.? * Procedure Codes:?G0127 RENATA ING DYSTROPHIC NAILS ANY #, Modifiers: XS 53880 DEBRIDE NAIL, 1-5, Modifiers: XS 19175 TRIM SKIN LESIONS, 2 TO 4, Modifiers: XS 77601 Avulsion Plate, Modifiers: XS , T4 * [...] * Sign off status: Completed true * Provider:?Elaine Oliva, DPM Date:? Generated for Michael vernon/Priscilla/eTdelmarsmitting on:?01/18/2025 08:11 AM EDT History and Physical Notes * HPI (History [...] visit today ORIENTED: person, place, and t inés Ophthalmology Referral DIABETES EYE EXAM Procedure Perform [...]
--- OUTSIDE RECORDS SUMMARY | 2025-01-18 08:11 | XMS_ITS | Patient Health Record ---
[facility] Address [address] [place] [address] Care Team Providers Care Strain Technician Name Role Phone Abelardo Araujo MD Primary Care Provider Unavailab Elaine Baca Unavailable [phone] Allergies Allergen (clinical drug ingredient) Drug/Non Drug Allergy documented on EMR Reaction Allergy Type Onset Date Status Bactrim hives Drug Allergy Active codeine Codeine Unknown Drug Allergy Active Results Component Value Reference Range Notes HEMOGLOBIN A1C (GLYCOHEMOGLO BIN) Reviewed date:12/27/2024 03:43:04 PM Interpretation: Performing Lab: Notes/Report: HEMOGLOBIN A1C % (HH) 7.2 Reason For Referral No Information Medications Medication [...] Problem Status W/U Status Risk Notes Problem 73509248638839917 Pressure ulcer of right ankle, unstageable (L89.510) Active confirmed Problem 063799638 Pressure ulcer of right ankle, stage 1 (L89.511) Active confirmed Problem Polyneuropathy due to type 2 diabetes mellitus (387059464) Type 2 diabetes mellitus with diabetic polyneuropathy (E11.42) Active confirmed Problem Polyneuropathy due to diabetes mellitus type I (361475939) Type 1 diabetes mellitus with diabetic polyneuropathy (E10.42) Active confirmed Problem 61509374 Type 2 diabetes mellitus with polyneuropathy (E11.42) Active confirmed Problem Neuropathic ulcer of right heel, 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) Active confirmed Response to treatment Problem 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) Active confirmed Response to treatment Problem 64861073059198554 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522 and Pressure ulcer of right ankle, unstageable L89.[address] [address] 04/18/2024 Elaine Perica Type 2 diabetes mellitus with diabetic polyneuropathy E11.42 ; Neuropathic ulcer of right ankle L97.319 and Pressure ulcer of right ankle, unstageable L89.[address] [address] 06/16/2024 Elaine Perica Type 2 diabetes mellitus with diabetic polyneuropathy E11.42 and Pressure ulcer of right ankle, unstageable L89.[address] [address] 12/27/2024 Elaine Perica Type 2 diabetes mellitus with diabetic polyneuropathy E11.42 ; Contusion of lesser toe of left foot with damage to nail, initial encounter S90.222A ; Tinea unguium B35.1 and Ingrown nail L60.[address] [address] 03/17/2024 Elaine Oliva [facility] [address] [address] 03/29/2024 Elaine Perica [facility] [place] [address] [place] [address] 03/29/2024 Elaine Perica [facility] [address] [address] 04/12/2024 Elaine Perica [facility] [place] [address] [place] [address] 04/18/2024 Elaine Perica [facility] [place] [address] [facility] [address] [place] [address] 08/25/2024 Elaine Perica [facility] [place] [address] [place] [address] 12/11/2024 Elaine Perica [facility] [address] [address] 12/27/2024 Elaine Wilks Encounter Date Diagnosis (ICD Code) Assessment Notes [...] Details Provider Name:Elaine stockton, 02/23/2025 11:45:00 AM, [address] [place] [address], [phone], Provider Name:Elaine stockton, 03/28/2025 03:30:00 PM, [address] [place] [address], [phone], Insurance Providers Payer Name Payer Address Payer Phone Subscriber Number Group Number Insured Name Patient Relationship to Insured Coverage Start Date Coverage End Date [employer] [place] [employer]vantage [facility] [address] [place] [address] [id number] Julian Vaughan Self - patient is the insured Medical (General) History Medical History History ICD Code Back,Hip,and Knee pain Diabetic Gall bladder problems Heart disease Hiatal hernia High blood pressure Reflux ( GERD) Measles Mumps Chicken pox Replacement Heart Valves Surgical History Surgery Date(Month/Year) gall bladder 1995
--- OUTSIDE RECORDS SUMMARY | 2025-01-18 08:12 | XMS_ITS | Patient Health Record ---
Author Organization [facility] Address [address] [place] [address] Care Team Providers Care Hog Grader Name Role Phone Vna CHRIS, Abelardo Primary Care Provider Siva Chan Jr Unavailable [phone] Allergies Allergen (clinical drug ingredient) Drug/Non Drug Allergy documented on EMR Reaction Allergy Type Onset Date Status Sulfa Unknown Drug Allergy Active codeine Codeine Sulfate Unknown Drug Allergy A ctive Results Component Value Reference Range Notes Leukocytes Stool Qualitative Reviewed date:09/28/2024 10:05:12 AM Interpretation: Performing Lab:[facility], [address] [place] [phone] Notes/Report: Leukocytes Stool Qualitative NEGATIVE NEGATIVE Pancreatic Elastase-1 Reviewed date:10/09/2024 04:23:21 PM Interpretation: Performing Lab:[facility], [address] [place] [phone] Notes/Report: Pancreatic Elastase-1 >800 >200 mcg/g E-1 mcg/g feces Interpretation <100 Severe exocrine pancreatic insufficiency 100-200 Mild to moderate exocrine pancreatic insufficiency >200 Normal THIS TEST WAS PERFORMED AT: [facility] [address] [place] [address] PÉREZ ODOM MD,PHD,RAFFI Fecal Fat Qualitative Reviewed date:10/09/2024 04:22:53 PM Interpretation: Performing Lab:[facility], [address] [place] [phone] Notes/Report: Fecal Fat Qualitative Normal Normal THIS TEST WAS PERFORMED AT: [facility] [id number] [place] [phone] AURY STEVENS MD,PHD Ova and Parasite Reviewed date:10/09/2024 04:22:09 PM Interpretation: Performing Lab:[facility], [address] [place] [phone] Notes/Report: Ova and Parasite SEE NOTE OVA AND PARASITES, CONC AND PERM SMEAR Micro Number: [id number] Test Status: Final Specimen Source: Stool Specimen [...] infection. For additional information, please refer to https://education.Opentopic/faq/FII825 (This link is being provided for informational/ educational purposes only.) THIS TEST WAS PERFORMED AT: [facility] [address] [address] RACHEAL HEBERT MD GI PANEL Reviewed date:10/04/2024 08:29:30 AM Interpretation: Performing Lab:[facility], [address] [place] [phone] Notes/Report: Campylobacter Not Detected Not Detect. Plesiomonas [...] is performed by Multiplexed PCR, utilizing the [employer] Array. Reason For Referral No Information Medications Medication [...] jennifer l Orally Once a day Unknown Immunizations Vaccine Route Administration Date Status Comme nts Influenza Unknown 07/09/2018 Administered Influenza Unknown 09/13/2024 Administered Social History Alcohol Screen Question Answer Notes Did you [...] drinks (0 point) Points 4 Interpretation Positive Section Notes: Tobacco use is negative, alc ohol use is occasional. Tobacco use is negative, alc ohol use is occasional. Tobacco use is negative over 40 years former smoker, alcohol use is occasional. Tobacco use is negative over 40 years former smoker, alcohol use is occasional. Tobacco use is negative over 40 years former smoker, alcohol use is occasional. Problems Problem Type SNOMED Code ICD Code Onset Dates Problem Status W/U Status Risk Notes Problem 611040773 Change in bowel habits (R19.4) Active confirmed Problem 90598138 Hemorrhoids, unspecified hemorrhoid type (K64.9) Active confirmed Problem 38522105 Diarrhea, unspecified type (R19.7) Active confirmed Problem 289672919 Gastroesophageal reflux disease, unspecified whether esophagitis present (K21.9) Active confirmed Vital Signs Temperature 97.1 degrees Fahrenheit 10/02/2024 Blood pressure diastolic 00 mm Hg 10/02/2024 Height 72 in 10/02/2024 Blood pressure systolic 000 mm Hg 10/02/2024 Weight 255 lbs 10/02/2024 BMI 34.58 kg/m2 10/02/2024 Encounters Encounter Location Date Provider Diagnosis [facility] [address] [place] [address] 10/02/2024 Siva Coates Jr Diarrhea, unspecified type R19.7 and Gastroesophageal reflux disease, unspecified whether esophagitis present K21.9 [facility] [address] [place] [address] 09/12/2024 Siva Coates Jr Diarrhea, unspecified type R19.7 [facility] [address] [place] [address] 10/09/2024 Siva Coates Jr [facility] [address] [place] [address] 01/04/2025 Siva Coates Jr Assessments Encounter Date Diagnosis (ICD Code) Assessment Notes Treatment Notes Treatment Clinical Notes Section Notes 10/02/2024 Diarrhea, unspecified type (ICD-10 - R19.7) Diarrhea - what to ask your health care provider - adult material was printed Currently, he is doing well. Diarrhea appears improved since stopping metformin. He will remain off this and followup with his sanitation engineer . We will await the rest of his stool testing. We did discuss colonoscopy today. He prefers to defer this at this time. Reflux symptoms are well-controlled on pantoprazole and he will continue this. 10/02/2024 Gastroesophageal reflux disease, unspecified whether esophagitis present (ICD-10 - K21.9) Currently, he is doing well. Diarrhea appears improved since stopping metformin. He will remain off this and followup with his sanitation engineer . We will await the rest of his stool testing. We did discuss colonoscopy today. He prefers to defer this at this time. Reflux symptoms are well-controlled on pantoprazole and he will continue this. 09/12/2024 Diarrhea, unspecified type (ICD-10 - R19.7) Plan Of Treatment Pending Test Test Name Order Date STOOL WBC 09/12/2024 OVA & PARASITES (O&P) 09/12/2024 PANCREATIC ELASTASE 09/12/2024 FECAL FAT QUAL 09/12/2024 XR BARIUM SWALLOW-ESOPHAGUS 10/08/2011 XR GI SERIES 03/08/2019 GI PANEL 09/12/2024 Future Test Test Name Order Date UPPER GI ENDOSCOPY 03/08/2019 Next Appt Details Provider Name:Siva reyna Jr, 02/02/2025 11:50:00 AM, [address] [facility] , [place], [place], [phone], Insurance Providers Payer Name Payer Address Payer Phone Subscriber Number Group Number Insured Name Patient Relationship to Insured Coverage Start Date Coverage End Date [facility] [address] [place] [phone] [id number] PUESCHEL , SCOTT Self - patient is the insured Medical (General) History Medical History History ICD Code Hypertension Gastroesophageal reflux dise ase, EGD 06/26, hiatal hernia with Fareed erosions Stress Coronary artery disease, history of [place] w ith stent placement 11/2016 RITA/CPAP Seasonal allergies Diabetes mellitus colonoscopy 04/06/12 for heme -positive stools, findings: diverticulosis and hemorrhoids, followup optional. Surgical History Surgery Date(Month/Year) cholecystectomy stent/ one artery 11/2016
--- OUTSIDE RECORDS SUMMARY | 2025-01-18 08:12 | XMS_ITS ---
Author Organization [facility] Address [address] [place] [address] Care Team Providers Care Green Building Engineer Name Role Phone Van CHRIS, Abelardo Primary Care Provider Unavailab Siva Harden Jr REASON FOR VISIT colonoscopy Encounters Encounter Location Date Provider Diagnosis [facility] [address] [place] [address] 01/04/2025 Siva Coates Jr Plan Of Treatment Next Appt Details Provider Name:Siva reyna Jr, 02/02/2025 11:50:00 AM, [address] [place] [address], [phone], Progress Notes * JOBYRAINGRISELDASCOTTDOB:[birth year] (79 yo M)Acc No.[id number]:01/04/2025 Patient:?SCOTT LOVE :1945???Age:79 Y???Sex:Male Address:[address] [place], [place] [address] [address] * true * Date:? Generated for Alisei janeen/Priscilla/eTransmitting on:?01/18/2025 08:12 AM EDT
--- OUTSIDE RECORDS SUMMARY | 2025-01-18 08:12 | XMS_ITS ---
Author Organization [facility] Address [address] [place] [address] Care Team Providers Care Surveyor Helper Name Role Phone Abelardo Araujo MD Primary Care Provider Unavailab Elaine Baca [phone] REASON FOR VISIT toe is black Encounters Encounter Location Date Provider Diagnosis [address] [address] 12/11/2024 Elaine Oliva Plan Of Treatment Next Appt Details Provider Name:Elaine stockton, 02/23/2025 11:45:00 AM, [address] [place] [address], [phone], Provider Name:Elaine stockton, 03/28/2025 03:30:00 PM, [address] [place] [address], [phone], Progress Notes * Julian LOVEDOB:[birth year] (79 yo M)Acc No.[id number]:12/11/2024 Patient:?Julian LOVE :1945???Age:79 Y???Sex:Male Address:[address] [place], [place] [address], [address] * true * Date:? Generated for Printi ng/Faxing/eTransmitting on:?01/18/2025 08:11 AM EDT
--- OUTSIDE RECORDS SUMMARY | 2025-01-18 08:12 | XMS_ITS ---
Author Organization [facility] Address [address] [place] [address] Care Team Providers Care Sewer Pipe Cleaner Name Role Phone Van CHRIS, Abelardo Primary Care Provider Unavailab Siva Harden Jr REASON FOR VISIT labs Encounters Encounter Location Date Provider Diagnosis [facility] [address] [place] [address] 10/09/2024 Siva Coates Jr Plan Of Treatment Next Appt Details Provider Name:Siva reyna Jr, 02/02/2025 11:50:00 AM, [address] [place] [address], [phone], Progress Notes * JOBYRAINRICHARDSCOTT ReyesDOB:[birth year] (79 yo M)Acc No.[id number]:10/09/2024 Patient:?SCOTT LOVE :1945???Age:79 Y???Sex:Male Address:[address] [place], [place] [address] [address] * true * Date:? Generated for Alisei janeen/Priscilla/eTransmitting on:?01/18/2025 08:12 AM EDT
--- OUTSIDE RECORDS SUMMARY | 2025-01-18 08:12 | XMS_ITS ---
Author Organization [facility] Address [address] [place] [id number] Care Team Providers Care Inventory Clerk Name Role Phone Van CHRIS, Abelardo Primary Care Provider UnavailSiva Miller Jr Unavailable [phone] Allergies Allergen (clinical drug ingredient) Drug/Non Drug Allergy documented on EMR Reaction Allergy Type Onset Date Status Sulfa Unknown Drug Allergy Active codeine Codeine Sulfate Unknown Drug Allergy A ctive REASON FOR VISIT Patient presents today for diarrhea Medications Medication SIG (Take, Route, Frequency, Duration) [...] 2 Orally Once a day 10/08/2011 Unknown Social History Alcohol Screen Question Answer Notes [...] Interpretation Positive Section Notes: Tobacco use is negative over 40 years former smoker, alcohol use is occasional. Problems Problem Type SNOMED Code ICD Code Onset Dates Problem Status W/U Status Risk Notes Problem [id number] Gastroesophageal reflux disease, unspecified whether esophagitis present (K21.9) Active confirmed Vital Signs Temperature 97.1 degrees Fahrenheit 10/02/20 24 Blood pressure systolic 000 mm Hg 10/02/20 24 Blood pressure diastolic 00 mm Hg 024 Height 72 in 10/02/2024 Weight 255 lbs 10/02/2024 BMI 34.58 kg/m2 10/02/2024 Encounters Encounter Location Date Provider Diagnosis [facility] [address] [place] [id number] 10/02/2024 Siva Coates Jr Diarrhea, unspecified type R19.7 and Gastroesophageal reflux disease, unspecified whether esophagitis present K21.9 Assessments Encounter Date Diagnosis (ICD Code) Assessment Notes Treatment Notes Treatment Clinical Notes Section Notes 10/02/2024 Diarrhea, unspecified type (ICD-10 - R19.7) Diarrhea - what to ask your health care provider - adult material was printed Currently, he is doing well. Diarrhea appears improved since stopping metformin. He will remain off this and followup with his petroleum analyst . We will await the rest of [...] remain off this and followup with his petroleum analyst . We will await the rest of his stool testing. We did discuss colonoscopy today. He prefers to defer this at this time. Reflux symptoms are well-controlled on pantoprazole and he will continue this. Plan Of Treatment Treatment Notes Assessment Notes Diarrhea, unspecified type Diarrhea - wh at to ask your health care provider - adult material was printed Next Appt Details Follow Up: 1 Year, Reason: Provider Name:Siva reyna , 02/02/2025 11:50:00 AM, [address] [place] [address], [phone], Progress Notes * SCOTT LOVEDOB:[birth year] (79 yo M)Acc No.[id number]:10/02/2024 Progress Notes Patient:?SCOTT LOVE Provider:?Siva Coates MD :1945???Age:79 Y???Sex:Male Vitaliy e:10/02/2024 Address:[address] [place], [place] [id number] Pcp:Abelardo Araujo MD Subjective: * Chief Complaints: * ???1. Patient presents today for diarrhea. * HPI: ???New symptom(s):? Patient is a pleasant 79-year-old man seen today in consultation. He reports symptomatic diarrhea over the last 4-5 months. Stools can be loose and sometimes float in the toilet. He has not lost weight. He has not changed his diet. He has been on metformin for diabetes which she stopped approximately 2 weeks ago. Since this time, his diarrhea has resolved. He does note occasional bright red blood on the tissue paper which he attributes to hemorrhoids. He returned stool specimens which have been negative for any sign of infection including white blood cells. Pancreatic enzyme testing is pending as this parasite testing. We discussed this today. His last colonoscopy was in 2011 for heme-positive stools and showed diverticulosis and hemorrhoids. We reviewed this today. ?He reports reflux symptoms are under good control on pantoprazole 40 mg daily. He has no dysphagia, hematemesis, or melena. Weight and appetite have been stable. * ROS:?General/Constitutional:?Change in appetite?denies.?Fatigue?denies.?ENT:?Patient denies?difficulty swallowing.?Respiratory:?Patient denies?shortness of breath.?Cardiovascular:?Patient denies?chest pain.?Gastrointestinal:?Comments?See HPI for details.?Genitourinary:?Difficulty urinating?denies.?Incontinence?denies.?Musculoskeletal:?Patient denies?muscle aches.?Skin:?Patient denies?pruritis.?Neurologic:?Patient denies?low back pain.?Psychiatric:?Patient denies?mental or physical abuse.? * Medical History:?Hypertensio n, Gastroesophageal reflux disease, EGD 06/26, hiatal hernia with Fareed erosions, Stress, Coronary artery disease, history of WI with stent placement 11/2016, RITA/CPAP, Seasonal allergies, Diabetes mellitus, Colonoscopy 04/06/12 for heme-positive stools, findings: diverticulosis and hemorrhoids, followup optional.. * Surgical History:?cholecyste ctomy , stent/ one artery 11/2016. * Family History:?Father: dece ased, diagnosed with Heart disease.?Mother: 93 yrs, diagnosed with HTN (hypertension).? Family history is negative for GI malignancy. * Social History:?Tobacco Use:?Tobacco Use/Smoking?Are you a: former smoker , How long has it been since you last smoked?: > 10 years.?Drugs/Alcohol:?Alcohol Screen?Did you have a drink containing alcohol in the past year??Yes,?How often did you have a drink containing alcohol in the past year??4 or more times a week (4 points),?How many drinks did you have on a typical day when you were drinking in the past year??1 or 2 drinks (0 point),?Points?4,?Interpretation?Positive.?Miscellaneous:?Marital status: . Occupation: retired. ???Tobacco use is negative over 40 years former smoker, alcohol use is occasional. * Medications:?Taking Probioti c - Capsule as directed Orally , Taking Aspirin 81 81 MG Tablet Delayed Release 1 tablet Orally Once a day, Taking Ferrous Sulfate 325 MG Capsule as directed Orally , Taking Flomax 0.4 MG Capsule Extended Release 24 Hour 1 capsule 30 minutes after the same meal each day Orally Once a day, Taking KlonoPIN 0.5 MG Tablet 1 tablet Orally Once a day, Taking Nifediac CC 30 MG Tablet Extended Release 1 tablet on an empty stomach Orally Once a day, Taking Protonix 40 MG Tablet Delayed Release 1 tablet 1/2 to 1 hour before morning meal Orally Once a day, Discontinued metFORMIN HCl 1000 MG Tablet 1 tablet with meals Orally Twice a day, Unknown NIFEdipine 30 MG (OSM) Tablet Extended Release 1 tablet on an empty stomach Orally Once a day, Unknown Bisoprolol-hydroCHLOROthiazide 5-6.25 MG Tablet 1 tablet Orally Once a day, Unknown Jardiance 10 MG Tablet 1 tablet Orally Once a day, Unknown Fish Oil 1000 MG Capsule 1 capsule Orally Once a day, Unknown Omeprazole 20 MG Capsule Delayed Release 2 Orally Once a day, Unknown Vitamin C 1000 MG Tablet 1 tablet Orally twice a day, Unknown Multivitamin Adults - Tablet Orally , Unknown ZyrTEC Allergy 10 MG Tablet 1 tablet Orally Once a day, Unknown Atorvastatin Calcium 40 MG Tablet 1 tablet Orally Once a day, Unknown CoQ-10 100 MG Capsule 1 capsule with a meal Orally Once a day, Unknown Quinapril HCl 40 MG Tablet 1 tablet Orally Once a day, Unknown Pantoprazole Sodium 40 MG Tablet Delayed Release 1 tablet Orally Once a day * Allergies:?Sulfa, Codeine Dawson lfate. Objective: * Vitals:?Wt: 255 lbs, Ht: 72 in, BMI:34.58 Index, BP: 000/00 mm Hg, Temp: 97.1. * Examination: ???General Examination: ?GENERAL APPEARANCE:?in no acute distress.?HEAD:?normocephalic.?EYES:?sclera non-icteric.?ORAL CAVITY:?mucosa moist.?NECK/THYROID:?no lymphadenopathy.?SKIN:?anicteric.?HEART:?S1, S2 normal, no murmurs.?LUNGS:?clear to auscultation bilaterally.?CHEST:?normal shape and expansion.?ABDOMEN:?soft, nontender, nondistended, bowel sounds present, no organomegaly .?EXTREMITIES:?no clubbing, cyanosis, or edema.?PSYCH:?cognitive function intact.? Assessment: * Assessment: 1.?Diarrhea, unspecified typ e - R19.7 (Primary)?2.?Gastroesophageal reflux disease, unspecified whether esophagitis present - K21.9? Currently, he is doing well. Diarrhea appears improved since stopping metformin. He will remain off this and followup with his petroleum analyst. We will await the rest of his stool testing. We did discuss colonoscopy today. He prefers to defer this at this time. Reflux symptoms are well-controlled on pantoprazole and he will continue this. Plan: * Treatment: * Procedure Codes:?G9903 Pt sc rn tbco id as non user, G9745 DOC RSN FOR NOT SCREEN/REC F/U HBP * Preventive Medicine:? ??Counseling:?Care goal follow-up plan:?Above Normal BMI Follow-up?Giving encouragement to exercise,?BMI management provided?Yes.? ??Screenings:?Fall Risk Screening?Fall Risk Assessment:?No falls in the past year,?Screening:?No falls in the past year,?Assessment:?Not performed, no reason specified,?Plan of Care:?Not documented, no reason specified.? * Follow Up:?1 Year * * Sign off status: Completed true * Provider:?Siva Coates MD Date:?12/02/2023 Generated for Michael vernon/Priscilla/eTdelmarsmdoni on:?01/18/2025 08:12 AM EDT History and Physical Notes * HPI (History of Present Illness) Category Sub-Category Detail Notes Category Not es New symptom(s) Patient is a pleasant 79-year-old man seen today in consultation. He reports symptomatic diarrhea over the last 4-5 months. Stools can be loose and sometimes float in the toilet. He has not lost weight. He has not changed his diet. He has been on metformin for diabetes which she stopped approximately 2 weeks ago. Since this time, his diarrhea has resolved. He does note occasional bright red blood on the tissue paper which he attributes to hemorrhoids. He returned stool specimens which have been negative for any sign of infection including white blood cells. Pancreatic enzyme testing is pending as this parasite testing. We discussed this today. His last colonoscopy was in 2011 for heme-positive stools and showed diverticulosis and hemorrhoids. We reviewed this today. He reports reflux symptoms are under good control on pantoprazole 40 mg daily. He has no dysphagia, hematemesis, or melena. Weight and appetite have been stable. Examination Category Sub-Category Detail Notes Category Not es General Examination GENERAL APPEARANCE: in no acute di stress HEAD: normocephalic EYES: sclera non-icteric NECK/THYROID: no lymphadenopathy HEART: S1, S2 normal, no mu rmurs CHEST: normal shape and exp ansion LUNGS: clear to auscultatio n bilaterally ABDOMEN: soft, nontender, non distended, bowel sounds present, no organomegaly SKIN: anicteric EXTREMITIES: no clubbing, cyanosi s, or edema PSYCH: cognitive function i ntact ORAL CAVITY: mucosa moist
[2025-01-18 09:40] LABS: Creatinine Urine 98.88 mg/dL
[2025-01-18 09:49] LABS: Estimated Average Glucose 140 mg/dL; Hemoglobin A1c % 6.5 % (<6.0)
[2025-01-18 10:12] LABS: Alanine Aminotransferase 26 U/L (0-40); Anion Gap 14 (12-20); Aspartate Amino Transferase 24 U/L (5-37); Blood Urea Nitrogen 23 mg/dL (9-16); Carbon Dioxide 22 mmol/L (22-29); Chloride 109 mmol/L (96-108); Estimated Glomerular Filt Rate > 60; Glucose Fasting 140 mg/dL (60-99); Potassium 4.2 mmol/L (3.3-5.1); Sodium 141 mmol/L (135-145)
== END 2025-01-18 08:04 | disposition home or self-care (01) ==
LOC: HO.LAB 08:03
PROVIDERS: PCP Family Medicine; Visit Provider Family Medicine
DX: I10 Essential (primary) hypertension (principal); E11.9 Type 2 diabetes mellitus without complications; E78.00 Pure hypercholesterolemia, unspecified; Z79.899 Other long term (current) drug therapy
CPT/HCPCS: 36415; 80051; 82043; 82550; 82565; 82570; 82947; 83036; 84450; 84460; 84520

== ENCOUNTER 2025-02-02 09:22 | Day surgery (SDC) | payer MEDICARE, SELFPAY ==
--- OUTSIDE RECORDS SUMMARY | 2025-01-05 11:13 | XMS_ITS ---
Author Organization [facility] Address [address] [place] [id number] Care Team Providers Care Oncology Rep Specialist Name Role Phone Abelardo Araujo MD Primary Care Provider Unavailab Elaine Baca Unavailable [phone] REASON FOR VISIT small toe L foot nail is coming off Encounters Encounter Location Date Provider Diagnosis [address] [id number] 12/27/2024 Elaine Oliva Plan Of Treatment Next Appt Details Provider Name:Elaine stockton, 02/23/2025 11:45:00 AM, [address] [place] [address], [id number], Provider Name:Elaine stockton, 03/28/2025 03:30:00 PM, [address] [place] [address], [phone], Progress Notes * Julian LOVEDOB:[birth year] (79 yo M)Acc No.[id number]:12/27/2024 Patient:?Julian LOVE :1945???Age:79 Y???Sex:Male Address:[address] [place] [address] [place], [address] * true * Date:? Generated for Printi ng/Faxing/eTransmitting on:?01/05/2025 11:13 AM EST
--- OUTSIDE RECORDS SUMMARY | 2025-01-05 11:13 | XMS_ITS ---
Author Organization [facility] Address [address] [place] [address] Care Team Providers Care Roasterman Name Role Phone Abelardo Araujo MD Primary Care Provider Elaine Esposito Unavailable [phone] Allergies Allergen (clinical drug ingredient) Drug/Non Drug Allergy documented on EMR Reaction Allergy Type Onset Date Status sulfamethoxazole / trimethoprim Bactrim hives Drug Allergy Active codeine Codeine Unknown Drug Allergy Active REASON FOR VISIT At Risk Footcare, Painful Toe(s) Medications Medication SIG (Take, Route, Frequency, Duration) Notes Start Date End Date Status Vitamin C 1000 MG 1 tablet Orally Once a day for 30 day(s) 1 tablet AM, 1 tablet PM Active Multivitamin Active Bisoprolol-hydroCHLOR Othiazide 5-6.25 MG 1 tablet Orally Once a day for 30 day(s) Active ZyrTEC Allergy 10 MG 1 tablet Orally Once a day for 30 day(s) Active Jardiance 10 MG 1 tablet Orally Once a day for 30 day(s) Active Atorvastatin Calcium 40 MG 1 tablet Orally Once a day for 30 day(s) Active Quinapril HCl 40 MG 1 tablet Orally Once a day for 30 day(s) Active Nifedical XL 30mg Active Co Q 10 100 MG as directed Orally Active Protonix 40 MG 1 tablet Orally Once a day for 30 day(s) Active Iron Active Mounjaro Active ASA 1 tab Oral for 14 days 81mg Active clonazePAM 0.5 MG 1 tablet at bedtime Orally Once a day Active Fish Oil 1000 MG 1 capsule Orally Once a day for 30 day(s) Not-Taking Gabapentin 300mg three times a day orally daily for 5 days Not-Taking Cephalexin 500 MG 1 capsule Orally every 12 hrs for 5 day(s) Not-Taking Lyrica Not-Taking Magnesium 250 MG 1 tablet with a meal Orally Once a day for 30 day(s) Not-Taking Cephalexin 500 MG 1 tablet Orally every 12 hrs for 10 day(s) 11/05/2021 Not-Taking metFORMIN HCl 1000 MG 1 tablet with a meal Orally Once a day 1 tablet AM, 1 tablet PM Not-Taking Social History Tobacco Use: Social History Observation Description Date Details (start date - stop date) Never Smoker NA - NA Tobacco use other than smoking: Question Answer Notes Are you an other tobacco user? No Tobacco Control (Standard) Question Answer Notes Tobacco use: Nonsmoker Problems Problem Type SNOMED Code ICD Code Onset Dates Problem Status W/U Status Risk Notes Problem Polyneuropathy due to diabetes mellitus type I ([id number]) Type 1 diabetes mellitus with diabetic polyneuropathy (E10.42) Active confirmed Vital Signs Height 6 ft in 12/27/2024 Weight 255 lbs 12/27/2024 BMI 34.58 kg/m2 12/27/2024 Blood pressure systolic 117 mm Hg 12/27/19 25 Blood pressure diastolic 72 mm Hg 025 Encounters Encounter Location Date Provider Diagnosis [facility] [address] [address] 12/27/2024 Elaine Oliva Type 2 diabetes mellitus with diabetic polyneuropathy E11.42 ; Contusion of lesser toe of left foot with damage to nail, initial encounter S90.222A ; Tinea unguium B35.1 and Ingrown nail L60.0 Assessments Encounter Date Diagnosis (ICD Code) Assessment Notes Treatment Notes Treatment Clinical Notes Section Notes 12/27/2024 Type 2 diabetes mellitus with diabetic polyneuropathy (ICD-10 - E11.42) 12/27/2024 Contusion of lesser toe of left foot with damage to nail, initial encounter (ICD-10 - S90.222A) 12/27/2024 Tinea unguium (ICD-10 - B35.1) 12/27/2024 Ingrown nail (ICD-10 - L60.0) Plan Of Treatment Next Appt Details Follow Up: 3 Months, Reason: Provider Name:Elaine stockton, 02/23/2025 11:45:00 AM, [address] [place] [address], [phone], Provider Name:Elaine stockton, 03/28/2025 03:30:00 PM, [address] [place] [address], [phone], Procedure Notes * Category Sub-Category Detail Notes Nail Avulsion Procedure TOTAL: A fine st erile elevator was placed between the eponychium, nail fold, and nail plate to separate the structures. The entire offending portion of nail was from the nail bed with a rolling action and then removed with a hemostat. No underlying bone was identified. There was minimal bleeding as hemostasis was achieved through the temporary use of either a digital tourniquet or the aforementioned local with epinephrine. A bacitracin sterile dressing was applied. Local wound aftercare instructions were discussed and dispensed. The patient was informed of both conservative and future surgical procedures to prevent recurrence (23541) Anesthesia was deferred - NEURO ROSLYN: patient has medically documented neuropathic condition affecting sensation Location Total nail, T4 Keratoma Treatment Parring or Cutting o f Benign Hyperkeratotic Lesion(s) (-56) 2-4 Lesions - Due to the at risk nature of the patients medical condition as documented in the exam findings, performance of this keratoderma treatment is medically necessary as its management by an unskilled/untrained nonprofessional would put this patients foot and overall health at risk. Therefore, the benign hyperkeratotic lesions, ( 2 ) in total, locations as stated and described in the exam ( TA, T5 ), were pared, and/or cut utilizing a sterile 15 blade, tissue nippers, and/or power dremel instrumentation by the physician of record - 82274 Debride Nails 1-5 Procedure: Due to the cli nical pathology outlined in the exam findings, performance of this nail treatment is medically necessary as its management by an unskilled/untrained nonprofessional would put this patients foot and overall health at risk. Therefore, debridement to affected nail(s), as described in exam ( T4, T9 ), was performed exclusively by the physician of record to reduce/remove overall nail length, girth, thickness, subungual debris, and necrotic tissue, by manual and/or electrical means through the use of a nail nipper and/or dremel stylegrinder, to a more viable healthy nail plate or bed tissue 5 nails or fewer in number. Silver nitrate was used for any petechial bleeding as necessary. Definitive antifungal treatment options, both pharmaceutical and surgical, have been reviewed and discussed with the patient. The patient solely prefers the use of intermittent/as needed professional debridement services for their nail condition and understands that additional periodic treatments may be required as necessary to maintain effective symptomatic relief - 99349 Nail Reduction Nail Reduction (-27) Trimming o f all dystrophic nails - Due to the at risk nature of the patients medical condition as documented in the exam findings, performance of this nail treatment is medically necessary as its management by an unskilled/untrained nonprofessional would put this patients foot and overall health at risk. Therefore, the dystrophic nails, in locations as stated and described in the exam ( TA, T1, T2, T3, T5, T6, T7, T8, ), were debrided by the phisician of record to reduce/remove overall nail length and girth, by manual and electrical means with use of a nail nipper and/or dremel, to more viable healthy nail plate or bed tissue - G0127 Progress Notes * Julian LOVEDOB:[birth year] (79 yo M)Acc No.[id number]:12/27/2024 Progress Note Patient:?Julian LOVE Provider:?Elaine Oliva DPM :1945???Age:79 Y???Sex:Male Vitaliy e:12/27/2024 Address:[address] [place], [place] [id number] Pcp:Abelardo Araujo MD Subjective: * Chief Complaints: * ???At Risk FootcarePainful T oe(s) * HPI: ???At Risk footcare:?Pt States Last PCP Visit:?Date?12/20/2024 ???Toe pain:?Nature:?aching, bruising, discoloration, swelling, tenderness, throbbing.?Location:?Left foot, 5th toe.?Duration:?since DOI ( several days, ).?Onset/Cause:?states traumatic.?Aggravated by:?any pressure , shoes , standing/walking.?Treatments:?rest/alter normal daily activity, ice.? * ROS:?General/Constitutional:?Nausea?denies.?Vomiting?denies.?Hunger Thirst?denies.?Loss appetite?denies.?Chills?denies.?Fatigue?denies.?Fever?denies.?Night Sweats?denies.?Unexplained weight loss?denies.?Unexplained weight gain?denies.?HEENTM:?Dentures?denies.?Dizziness?denies.?Glasses/contacts?admits.?Retinopathy?den ies.?Blurred/double vision?denies.?TMJ?denies.?Discharge/drainage?denies.?Implants?denies.?Sore throat?denies.?Dental implants?denies.?Hard of hearing ?denies.?Difficulty chewing/swallowing/speaking?denies.?Nose bleeds?denies.?Sore mouth?denies.?Respiratory:?On O xygen?denies.?Pneumonia/pleurisy?denies.?Bronchitis?denies.?Emphysema?denies.?Co ughing?denies.?Cough blood?denies.?Shortness of breath?denies.?Wheezing?denies.?Cardiovascular:?Pacemaker?denies.?MVP?denies.?WPW?denies.?CHF?denies.?Heart attack?admits.?Septal defect?denies.?Rapid beat?denies.?Chest pain ?denies.?Atrial Fib.?denies.?Murmur/Palpitations?denies.?Gastrointestinal:?Hemorrhoids?denies.?Stomach/Abdominal pain?denies.?Dark blood stool?denies.?Irritable bowel ?denies.?Constipation?denies.?Diarrhea?denies.?Hematology:?Swelling?admits.?Clots?denies.?Varicose Veins?denies.?Bruising?denies.?Bleeding problem?denies.?Genitourinary:?Blood urine?denies.?Frequent/Painfu/urination/bladder control?denies.?Kidney stones?denies.?Infection (UTI)?denies.?Nephropathy?denies.?sex trans dis (STD)?denies.?Prostate?denies.?Musculoskeletal:?Hammertoes?admits.?Bunions?denies.?Back Pain?denies.?Muscle Cramps/ Resting?denies.?Muscle cramps / walking?denies.?Generalized aches and pains?admits.?Weakness?denies.?Integ.:?Whitney?denies.?Scars?denies.?Corns/calluses?denies.?Ingrown nails?admits.?Painful nails?admits.?Open Sores?denies.?Rashes?denies.?Neurologic:?Difficulty sleeping?denies.?Brain disorder?denies.?Numbness?denies.?Balance t rouble?denies.?Confusion?denies.?Fainting/blackouts?denies.?Tingling?admits.?Jonas mors?denies.? * Medical History:? * Surgical History:?gall bladd er 1995 * Hospitalization/Major Diagno stic Procedure:?Denies Past Hospitalization * Family History:?Mother: dece ased.?Father: , diagnosed with Unspecified heart disease, Diabetic - NIDDM.? * Social History:?Tobacco Use:?Tobacco use other than smoking?Are you an other tobacco user??No ?Tobacco Control (Standard)?Tobacco use:?Nonsmoker ???Miscellaneous:?Caffeine: no. ?Children: yes, 4. ?Exercise: yes, walking. ?Marital status: . 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 * Medications:?TakingMounjaro Iron clonazePAM 0.5 MG Tablet 1 tablet at bedtime Orally Once a day ASA 1 tab Oral , Notes to Pharmacist: 81mgNifedical XL , Notes to Pharmacist: 30mgQuinapril HCl 40 MG Tablet 1 tablet Orally Once a day Protonix 40 MG Tablet Delayed Release 1 tablet Orally Once a day Co Q 10 100 MG Capsule as directed Orally Atorvastatin Calcium 40 MG Tablet 1 tablet Orally Once a day Jardiance 10 MG Tablet 1 tablet Orally Once a day ZyrTEC Allergy 10 MG Tablet 1 tablet Orally Once a day Multivitamin Vitamin C 1000 MG Tablet 1 tablet Orally Once a day , Notes to Pharmacist: 1 tablet AM, 1 tablet PMBisoprolol-hydroCHLOROthiazide 5-6.25 MG Tablet 1 tablet Orally Once a day Taking Mounjaro Taking Iron Taking clonazePAM 0.5 MG Tablet 1 tablet at bedtime Orally Once a day Taking ASA 1 tab Oral , Notes to Pharmacist: 81mgTaking Nifedical XL , Notes to Pharmacist: 30mgTaking Quinapril HCl 40 MG Tablet 1 tablet Orally Once a day Taking Protonix 40 MG Tablet Delayed Release 1 tablet Orally Once a day Taking Co Q 10 100 MG Capsule as directed Orally Taking Atorvastatin Calcium 40 MG Tablet 1 tablet Orally Once a day Taking Jardiance 10 MG Tablet 1 tablet Orally Once a day Taking ZyrTEC Allergy 10 MG Tablet 1 tablet Orally Once a day Taking Multivitamin Taking Vitamin C 1000 MG Tablet 1 tablet Orally Once a day , Notes to Pharmacist: 1 tablet AM, 1 tablet PMTaking Bisoprolol-hydroCHLOROthiazide 5-6.25 MG Tablet 1 tablet Orally Once a day Not-Taking/PRNmetFORMIN HCl 1000 MG Tablet 1 tablet with a meal Orally Once a day , Notes to Pharmacist: 1 tablet AM, 1 tablet PMMagnesium 250 MG Tablet 1 tablet with a meal Orally Once a day Lyrica Cephalexin 500 MG Tablet 1 tablet Orally every 12 hrs Cephalexin 500 MG Capsule 1 capsule Orally every 12 hrs Gabapentin 300mg tablets three times a day orally daily Fish Oil 1000 MG Capsule 1 capsule Orally Once a day Medication List reviewed and reconciled with the patientNot-Taking/PRN metFORMIN HCl 1000 MG Tablet 1 tablet with a meal Orally Once a day , Notes to Pharmacist: 1 tablet AM, 1 tablet PMNot-Taking/PRN Magnesium 250 MG Tablet 1 tablet with a meal Orally Once a day Not-Taking/PRN Lyrica Not-Taking/PRN Cephalexin 500 MG Tablet 1 tablet Orally every 12 hrs Not-Taking/PRN Cephalexin 500 MG Capsule 1 capsule Orally every 12 hrs Not-Taking/PRN Gabapentin 300mg tablets three times a day orally daily Not-Taking/PRN Fish Oil 1000 MG Capsule 1 capsule Orally Once a day Medication List reviewed and reconciled with the patient * Allergies:?Bactrim: Anthony robbins[Allergies Verified] Objective: * Vitals:?Ht: 6 ft, Wt: 255, B NE: 34.58, Shoe size: 11B, BP: 117/72 mm Hg, BS: not taken, Wt-k.67 kg. * ???Past Orders: ???Lab:HEMOGLOBIN A1C (GLYCO HEMOGLOBIN) (Order Date - 11/08/2024) (Collection Date & Time - 11/08/2024 03:42 PM) ? Value Reference Range ?HEMOGLOBIN A1C % (HH) 7.2 * Examination: ???Ophthalmology Referral: ?DIABETES EYE EXAM?Procedure Performed:?Yes ?Date of Exam Performed?11/08/2024 ?Findings of Diabetic Eye Exam:?no retinopathy?Neurological: ?SENSORY:?Neurological exam demonstrates, reduced light touch sensation, reduced sharp/dull discrimination , reduced vibration sensation, in a stocking fashion, B/L, 5.07 monofilament test performed at plantar aspects of 5 varied sites per foot shows sensation, reduced, B/L.?Nails: ?NAILS are:?Elongated, overgrown, dystrophic, lytic, greater than 3mm thick, discolored and friable with crumbly malodorous subungual debris ( T4 ), all other nails not described with characteristics as possessing mycosis are elongated, overgrown, and dystrophic ( TA, T1, T2, T3, T6, T7, T8, T9, ) , Nail plate intact lytic with blood T4.?Dermatologic: ?SKIN FINDINGS:?Skin exam reveals Keratotic lesion(s) located at TA, T5; dried blood blister lateral midfoot left without infection.?Orthopedic: ?MUSCLE STRENGTH:?5/5 all groups in a symmetrical fashion, B/L.?DIGITAL DEFORMITIES:?Digital contracture, PIPJ, 2-5 B/L, incompl-reducible with WB, or to push-up test, no over, nor underlapping.?Vascular: ?DP PULSES (B):?3/4, B/L.?PT PULSES (B):?3/4, B/L.?CAPILLARY FILL TIME:?immediate, all digits, B/L.?TROPHIC CONDITION-TEXTURE/ELASTICITY/TURGOR/HAIR GROWTH (B):?normal, B/L.?TEMPERTURE GRADIENT (C):?normal, warm to cool, proximal to distal, B/L, B/L.?PIGMENTATION:?normal, B/L.?EDEMA (C):?absent, B/L.?CLAUDICATION (C):?denies, B/L.?REST PAIN:?denies, B/L.?General Examination: ?GENERAL APPEARANCE:?Reveals a pleasant, alert, well nourished, well- developed, well hydrated individual, who demonstrates proper attention to hygiene/body habitus, and is in no acute distress, Pt serves as own historian for office visit today.?ORIENTED:?person, place, and time.? Assessment: * Assessment: 1.?Type 2 diabetes mellitus with diabetic polyneuropathy - E11.42???2.?Contusion of lesser toe of left foot with damage to nail, initial encounter - S90.222A (Primary)???3.?Tinea unguium - B35.1???4.?Ingrown nail - L60.0??? Plan: * Treatment: * Procedures:?Debride Nails 1-5:?Procedure:?Due to the clinical pathology outlined in the exam findings, performance of this nail treatment is medically necessary as its management by an unskilled/untrained nonprofessional would put this patients foot and overall health at risk. Therefore, debridement to affected nail(s), as described in exam ( T4, T9 ), was performed exclusively by the physician of record to reduce/remove overall nail length, girth, thickness, subungual debris, and necrotic tissue, by manual and/or electrical means through the use of a nail nipper and/or dremel stylegrinder, to a more viable healthy nail plate or bed tissue 5 nails or fewer in number. Silver nitrate was used for any petechial bleeding as necessary. Definitive antifungal treatment options, both pharmaceutical and surgical, have been reviewed and discussed with the patient. The patient solely prefers the use of intermittent/as needed professional debridement services for their nail condition and understands that additional periodic treatments may be required as necessary to maintain effective symptomatic relief - [id number].?Keratoma Treatment:?Parring or Cutting of Benign Hyperkeratotic Lesion(s)?(-56) 2-4 Lesions - Due to the at risk nature of the patients medical condition as documented in the exam findings, performance of this keratoderma treatment is medically necessary as its management by an unskilled/untrained nonprofessional would put this patients foot and overall health at risk. Therefore, the benign hyperkeratotic lesions, ( 2 ) in total, locations as stated and described in the exam ( TA, T5 ), were pared, and/or cut utilizing a sterile 15 blade, tissue nippers, and/or power dremel instrumentation by the physician of record - 99164.?Nail Avulsion:?Location?Total nail, T4.?Anesthesia?was deferred - NEUROPATHY: patient has medically documented neuropathic condition affecting sensation.?Procedure?TOTAL: A fine sterile elevator was placed between the eponychium, nail fold, and nail plate to separate the structures. The entire offending portion of nail was from the nail bed with a rolling action and then removed with a hemostat. No underlying bone was identified. There was minimal bleeding as hemostasis was achieved through the temporary use of either a digital tourniquet or the aforementioned local with epinephrine. A bacitracin sterile dressing was applied. Local wound aftercare instructions were discussed and dispensed. The patient was informed of both conservative and future surgical procedures to prevent recurrence (42089).?Nail Reduction:?Nail Reduction?(-27) Trimming of all dystrophic nails - Due to the at risk nature of the patients medical condition as documented in the exam findings, performance of this nail treatment is medically necessary as its management by an unskilled/untrained nonprofessional would put this patients foot and overall health at risk. Therefore, the dystrophic nails, in locations as stated and described in the exam ( TA, T1, T2, T3, T5, T6, T7, T8, ?), were debrided by the phisician of [facility] to reduce/remove overall nail length and girth, by manual and electrical means with use of a nail nipper and/or dremel, to more viable healthy nail plate or bed tissue - G0127.? * Procedure Codes:?G0127 RENATA ING DYSTROPHIC NAILS ANY #, Modifiers: XS 96189 DEBRIDE NAIL, 1-5, Modifiers: XS 74750 TRIM SKIN LESIONS, 2 TO 4, Modifiers: XS 77070 Avulsion Plate, Modifiers: XS , T4 * Preventive Medicine:? ??Counseling:?Discussion:?-13: Office or other outpatient visit for the evaluation and management of an established patient, which required a medically appropriate history and/or examination and LOW level of DECISION MAKING for: 1 STABLE ACUTE UNCOMPLICATED PROBLEM, 2 OR MORE MINOR PROBLEMS, OR 1 STABLE CHRONIC PROBLEM, THAT POSE(S) A LOW RISK FOR MORBIDITY/MORTALITY. The visit on the day of the encounter encompassed interpreting the data and educating the patient as to the nature of their condition, treatment options available according to their individual PMH, meds, allergies, and overall health/living conditions, as well as any potential risks or complications that may occur from a failure to adhere to, and participate in, the recommended course of therapy. The discussion included a complete verbal, and/or written explanation of the examination results, any x-rays taken, the proposed diagnosis, and outline of the treatment plan. A schedule for future care needs was also explained. The patient verbalized an understanding of the instructions at this time and agreed to be an active participant in their treatment. If the patient should think of any questions or concerns after the visit, I have encouraged the patient to call the office.?Digital Treatment:?I explained to the patient the risks/benefits of all the different treatment options for their pain including: No treatment at all, Rest, Ice, New/supportive/wider/deeper Shoegear, Digital Padding/Strapping/Taping/Bracing/Gel protective sleeves, Foot/Ankle AFO Bracing, Stretching exercises, Deep Tissue Massage, Arch support/shoe inserts with splay metatarsal padding, and Custom orthoses. I insisted that any digital devices be removed daily and not worn overnight for safety. The patient is to carefully examine the toes daily for any skin irritation while using any splinting or padding device. The advantages and disadvantages of each option were discussed and the patients questions re: shoegear, padding, custom vs prefabricated inserts, activity level, and consistency in home treatment regimens for optimal success were answered to their verbally confirmed satisfaction.?P.R.I.C.E.:?The patient was counseled on the use of P.R.I.C.E. and NSAIDS (if well tolerated) to aid in the recovery from their painful condition , Recommended Topical analgesics including Aspercream/Biofreeze/Voltaren gel as directed.? ??Screening/Special Tests:?Fall Risk?Screening:?No falls in the past year ?FALLS: Screening for Future Fall Risk?Have you had any falls with injury in the past year??No * Follow Up:?3 Months * Images: * Sign off status: Completed true * Provider:?GODWIN LombardiM Date:? Generated for Michael vernon/Priscilla/Tarun on:?01/05/2025 11:13 AM EST History and Physical Notes * HPI (History of Present Illness) Category Sub-Category Detail Notes Category Not es Toe pain Nature: aching, bruising , discoloration, swelling, tenderness, throbbing Location: Left foot, 5th toe Duration: since DOI ( several days, ) Onset/Cause: states traumatic Aggravated by: any pressure , shoes , standing/walking Treatments: rest/alter normal da melissa activity, ice At Risk footcare Pt States Last PCP Visit: Date: Examination Category Sub-Category Detail Notes Category Not es Neurological SENSORY: Neurological exa m demonstrates, reduced light touch sensation, reduced sharp/dull discrimination , reduced vibration sensation, in a stocking fashion, B/L, 5.07 monofilament test performed at plantar aspects of 5 varied sites per foot shows sensation, reduced, B/L Dermatologic SKIN FINDINGS: Skin exam reveal s Keratotic lesion(s) located at TA, T5; dried blood blister lateral midfoot left without infection Orthopedic DIGITAL DEFORMITIES: Digital con tracture, PIPJ, 2-5 B/L, incompl-reducible with WB, or to push-up test, no over, nor underlapping MUSCLE STRENGTH: 5/5 all groups in a symmetrical fashion, B/L General Examination GENERAL APPEARANCE: Reveals a pleasant, alert, well nourished, well-developed, well hydrated individual, who demonstrates proper attention to hygiene/body habitus, and is in no acute distress, Pt serves as own historian for office visit today ORIENTED: person, place, and t niés Ophthalmology Referral DIABETES EYE EXAM Procedure Perform ed:: Yes ?Date of Exam Performed: 11/08/2024 Findings of Diabetic Eye Exam:: no retin opathy Vascular DP PULSES (B): 3/4, B/L PT PULSES (B): 3/4, B/L CAPILLARY FILL TIME: immediate, all digi ts, B/L TEMPERTURE GRADIENT (C): normal, warm to cool, proximal to distal, B/L, B/L TROPHIC CONDITION-TEXTURE/ELASTICITY/TURGOR/HAIR GROWTH (B): normal, B/L EDEMA (C): absent, B/L CLAUDICATION (C): denies, B/L REST PAIN: denies, B/L PIGMENTATION: normal, B/L Nails NAILS are: Elongated, overg rown, dystrophic, lytic, greater than 3mm thick, discolored and friable with crumbly malodorous subungual debris ( T4 ), all other nails not described with characteristics as possessing mycosis are elongated, overgrown, and dystrophic ( TA, T1, T2, T3, T6, T7, T8, T9, ) , Nail plate intact lytic with blood T4
--- OUTSIDE RECORDS SUMMARY | 2025-01-05 11:13 | XMS_ITS | Patient Health Record ---
Author Organization [facility] Address [address] [place] [address] Care Team Providers Care Separator Operator [employer] Name Role Phone Abelardo Araujo MD Primary Care Provider UnavailElaine Marti Unavailable [phone] Allergies Allergen (clinical drug ingredient) Drug/Non Drug Allergy documented on EMR Reaction Allergy Type Onset Date Status sulfamethoxazole / trimethoprim Bactrim hives Drug Allergy Active codeine Codeine Unknown Drug Allergy Active Results Component Value Reference Range Notes HEMOGLOBIN A1C (GLYCOHEMOGLO BIN) Reviewed date:12/27/2024 03:43:04 PM Interpretation: Performing Lab: Notes/Report: HEMOGLOBIN A1C % (HH) 7.2 HEMOGLOBIN A1C (GLYCOHEMOGLO BIN) Reviewed date:03/17/2024 01:31:40 PM Interpretation: Performing Lab: Notes/Report: HEMOGLOBIN A1C (HH) 6.6 Reason For Referral No Information Medications Medication SIG (Take, Route, Frequency, Duration) Notes Start Date End Date Status Iron Active Vitamin C 1000 MG 1 tablet Orally Once a day for 30 day(s) 1 tablet AM, 1 tablet PM Active Mounjaro Active Multivitamin Active ASA 1 tab Oral for 14 days 81mg Active metFORMIN HCl 1000 MG 1 tablet with a meal Orally Once a day 1 tablet AM, 1 tablet PM Not-Taking clonazePAM 0.5 MG 1 tablet at bedtime Orally Once a day Active Bisoprolol-hydroCHLOR Othiazide 5-6.25 MG 1 tablet Orally Once a day for 30 day(s) Active Atorvastatin Calcium 40 MG 1 tablet Orally Once a day for 30 day(s) Active Gabapentin 300mg three times a day orally daily for 5 days Not-Taking Cephalexin 500 MG 1 capsule Orally every 12 hrs for 5 day(s) Not-Taking ZyrTEC Allergy 10 MG 1 tablet Orally Once a day for 30 day(s) Active Jardiance 10 MG 1 tablet Orally Once a day for 30 day(s) Active Fish Oil 1000 MG 1 capsule Orally Once a day for 30 day(s) Not-Taking Quinapril HCl 40 MG 1 tablet Orally Once a day for 30 day(s) Active Lyrica Not-Taking Nifedical XL 30mg Active Magnesium 250 MG 1 tablet with a meal Orally Once a day for 30 day(s) Not-Taking Co Q 10 100 MG as directed Orally Active Protonix 40 MG 1 tablet Orally Once a day for 30 day(s) Active Cephalexin 500 MG 1 tablet Orally every 12 hrs for 10 day(s) 11/05/2021 Not-Taking Immunizations Vaccine Route Administration Date Status Comme nts COVID-19 Moderna Vaccine Unknown 09/07/2021 Administered First Dose:12/09/20 Second Dose: 01/06/2021 Influenza Unknown 07/09/2020 Administered Influenza Unknown 08/08/2021 Administered Influenza Unknown 07/09/2023 Administered Social History Tobacco Use: Social History Observation Description Date Details (start date - stop date) Never Smoker NA - NA Alcohol Screen Question Answer Notes Did you have a drink contain ing alcohol in the past year? Yes How often did you have a dri nk containing alcohol in the past year? 4 or more times a week (4 points) How often did you have 6 or more drinks on one occasion in the past year? Weekly (3 points) Points 7 Interpretation Positive Tobacco use other than smoking: Question Answer Notes Are you an other tobacco user? No Tobacco Control (Standard) Question Answer Notes Tobacco use: Nonsmoker Problems Problem Type SNOMED Code ICD Code Onset Dates Problem Status W/U Status Risk Notes Problem [id number] Pressure ulcer of right ankle, unstageable (L89.510) Active confirmed Problem 780135152 Pressure ulcer of right ankle, stage 1 (L89.511) Active confirmed Problem Polyneuropathy due to type 2 diabetes mellitus (192438190) Type 2 diabetes mellitus with diabetic polyneuropathy (E11.42) Active confirmed Problem Polyneuropathy due to diabetes mellitus type I (312463891) Type 1 diabetes mellitus with diabetic polyneuropathy (E10.42) Active confirmed Problem 84767672 Type 2 diabetes mellitus with polyneuropathy (E11.42) Active confirmed Problem Neuropathic ulcer of right heel, 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) Active confirmed Response to treatment Problem 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) Active confirmed Response to treatment Problem 09620329867225471 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) Active confirmed Vital Signs Blood pressure diastolic 72 mm Hg 12/27/2024 Height 6 ft in 12/27/2024 Blood pressure systolic 117 mm Hg 12/27/2024 Weight 255 lbs 12/27/2024 BMI 34.58 kg/m2 12/27/2024 Encounters Encounter Location Date Provider Diagnosis [address] [address] 03/17/2024 Elaine Oliva Ingrown nail L60.0 and Type 2 diabetes mellitus with polyneuropathy E11.[address] [address] 03/29/2024 Elaine Oliva Type 2 diabetes mellitus with diabetic polyneuropathy E11.42 ; Neuropathic ulcer of right ankle L97.319 ; Neuropathic ulcer of left foot with fat layer exposed L97.522 and Pressure ulcer of right ankle, unstageable L89.[address] [address] 04/18/2024 Elaine Oliva Type 2 diabetes mellitus with diabetic polyneuropathy E11.42 ; Neuropathic ulcer of right ankle L97.319 and Pressure ulcer of right ankle, unstageable L89.[address] [address] 06/16/2024 Elaine Oliva Type 2 diabetes mellitus with diabetic polyneuropathy E11.42 and Pressure ulcer of right ankle, unstageable L89.[address] [address] 12/27/2024 Elaine Garciaa Type 2 diabetes mellitus with diabetic polyneuropathy E11.42 ; Contusion of lesser toe of left foot with damage to nail, initial encounter S90.222A ; Tinea unguium B35.1 and Ingrown nail L60.[address] [place] [address] 03/17/2024 Elaine [facility] [place] [address] [place] [address] 03/29/2024 Elaine [facility] [address] [address] 03/29/2024 Elaine [facility] [address] [address] 04/12/2024 Elaine [facility] [address] [address] 04/18/2024 Elaine [facility] [place] [address] [facility] [address] [place] [address] 08/25/2024 Elaine [facility] [address] [address] 12/11/2024 Elaine [facility] [address] [address] 12/27/[address] [facility] Encounter Date Diagnosis (ICD Code) Assessment Notes Treatment Notes Treatment Clinical Notes Section Notes 03/17/2024 Ingrown nail (ICD-10 - L60.0) 03/29/2024 Type 2 diabetes mellitus with diabetic polyneuropathy (ICD-10 - E11.42) 03/29/2024 Neuropathic ulcer of right ankle (ICD-10 - L97.319) 04/18/2024 Type 2 diabetes mellitus with diabetic polyneuropathy (ICD-10 - E11.42) 06/16/2024 Pressure ulcer of right ankle, unstageable (ICD-10 - L89.510) 06/16/2024 Type 2 diabetes mellitus with diabetic polyneuropathy (ICD-10 - E11.42) 12/27/2024 Type 2 diabetes mellitus with diabetic polyneuropathy (ICD-10 - E11.42) 12/27/2024 Contusion of lesser toe of left foot with damage to nail, initial encounter (ICD-10 - S90.222A) 12/27/2024 Tinea unguium (ICD-10 - B35.1) 04/18/2024 Neuropathic ulcer of right ankle (ICD-10 - L97.319) 04/18/2024 Pressure ulcer of right ankle, unstageable (ICD-10 - L89.510) 03/29/2024 Neuropathic ulcer of left foot with fat layer exposed (ICD-10 - L97.522) Response to treatment Patient Educated with: WOUND CARE INSTRUCTIONS. pdf (WOUND CARE INSTRUCTIONS. pdf) 03/17/2024 Type 2 diabetes mellitus with polyneuropathy (ICD-10 - E11.42) 03/29/2024 Pressure ulcer of right ankle, unstageable (ICD-10 - L89.510) 12/27/2024 Ingrown nail (ICD-10 - L60.0) 03/29/2024 Other 04/18/2024 Other Patient Educated with: WOUND CARE INSTRUCTIONS. pdf (WOUND CARE INSTRUCTIONS. pdf) 06/16/2024 Other Plan Of Treatment Pending Test Test Name Order Date MRI : Ankle, right 03/29/2024 X ray : Foot, right 3V 11/05/2021 X ray : Ankle, right 3V 03/29/2024 Next Appt Details Provider Name:Elaine stockton, 02/23/2025 11:45:00 AM, [address] [place] [address], [phone], Provider Name:Elaine stockton, 03/28/2025 03:30:00 PM, [address] [place] [address], [phone], Insurance Providers Payer Name Payer Address Payer Phone Subscriber Number Group Number Insured Name Patient Relationship to Insured Coverage Start Date Coverage End Date [employer] [place] [employer]age [address] [facility] [place] [address] [phone] [id number] Julian Vaughan Self - patient is the insured Medical (General) History Medical History History ICD Code Back,Hip,and Knee pain Diabetic Gall bladder problems Heart disease Hiatal hernia High blood pressure Reflux ( GERD) Measles Mumps Chicken pox Replacement Heart Valves Surgical History Surgery Date(Month/Year) gall bladder 1995
--- OUTSIDE RECORDS SUMMARY | 2025-01-05 11:13 | XMS_ITS ---
Author Organization [facility] [place] Address [address] [place] [phone] Care Team Providers Care Assistant Distribution Manager Name Role Phone Abelardo Araujo MD Primary Care Provider UnavailElaine Marti [phone] REASON FOR VISIT toe is black Encounters Encounter Location Date Provider Diagnosis [address] [address] 12/11/2024 Elaine Oliva Plan Of Treatment Next Appt Details Provider Name:Elaine stockton, 02/23/2025 11:45:00 AM, [address] [place] [address], [phone], Provider Name:Elaine stockton, 03/28/2025 03:30:00 PM, [address] [place] [address], [phone], Progress Notes * Julian L[birth year]EDOB:[birth year] (79 yo M)Acc No.[id number]:12/11/2024 Patient:?Julian LOVE :1945???Age:79 Y???Sex:Male Address:[address] [place], [place] [address], [address] * true * Date:? Generated for Printi ng/Faxing/eTransmitting on:?01/05/2025 11:13 AM EST
--- OUTSIDE RECORDS SUMMARY | 2025-01-05 11:13 | XMS_ITS | Continuity of Care Document ---
Author Organization [facility] [address] [place] [address] Phone [phone] Care Team Providers Care Territory Supervisor Name Role Phone Abelardo Araujo M.D. Care Team Information Receive r [phone] Problems Active Problems Provider Date Type 2 diabetes mellitus Rah Nichols M.D. Onset: 06/23/2022 Hyperlipidemia Rah Nichols M.D. Onset: 0 06/23/2022 Hypertensive disorder Rah Nichols M.D. On set: 06/23/2022 Gastroesophageal reflux disease Rah corrigan M.D. Onset: 06/23/2022 Social History Type Date Description Comments Sex Unknown Lives With Spouse ETOH Use Consumes 1 pint of liquor day Tobacco Use Start: Unknown End: Unknown Patient is a former smoker Smoking Status Reviewed: 08/31/23 Patient is a former smoker Allergies and adverse reactions Active Allergies Criticality Reaction Severity Comments Date Codeine Unable to assess criticality 06/23/2022 Barium Sulfate Unable to assess criticality 06/23/2022 Medications Active Medications SIG Qnty Indications Order ing Provider Date Nmadfika6kt/0.5ML Solution Auto-Inject inject 0.5 milliliters weekly 2ml Rah Nichols M.D. 12/05/2024 Rouxvi91la Capsules 1 tab by mouth at bed 90caps Rah Nichols M.D. 02/26/2023 Atorvastatin Ltuvtye76gp Tablets 1 tab by mouth every evening 270tabs Dora Jade MD Clonazepam0.5mg Tablets 1/2 tab by mouth at bed time 60tabs Abelardo Araujo M.D. Mzozjgdiv74rr Tablets Take One Tablet By Mouth Every Morning 90tabs Rah Nichols M.D. Nifedipine ER30mg Tablets ER 24HR 1 tab by mouth every day Abelardo Araujo M.D. Quinapril CJF21vs Tablets 1 tabs by mouth every day Abelardo Araujo M.D. Bisoprolol Fumarate/Hydrochloro thiazide5-6.25mg Tablets 1 tabs by mouth every day Abelardo Araujo M.D. History Medications Ozempic (0.25 Or 0.5 MG/Dose)2mg/3ML Solution Pen-Inject inject 0.25 mg subcutaneously once weekly for 4 weeks then inject 0.5 mg weekly 2ml Rah Nichols M.D. 10/02/2024 - 12/05/2024 Mounjaro2.5mg/0.5ML Solution Auto-Inject inject 0.5 milliliters weekly 2ml Rah Nichols M.D. 09/29/2024 - 12/05/2024 Vital Signs Date Vital Result Comment 12/05/2024 2:10pm BP Systolic 100 mmHg BP Diastolic 70 mmHg Heart Rate 72 /min Height 72 inches 6'0 Weight 250.00 lb BMI (Body Mass Index) 33.9 kg/m2 Results Test Acquired Date Facility Test Result H/L [facility] [place] Laboratory test finding 12/05/2024 Inhouse Glucose Fingerstick 142 Hemoglobin A1c 7.3% Laboratory test finding 08/01/2024 Inhouse Glucose Fingerstick 185 Hemoglobin A1c 6.6 % Laboratory test finding 03/28/2024 Inhouse Glucose Fingerstick 151 Laboratory test finding 08/31/2023 Inhouse Glucose Fingerstick 127 Laboratory test finding 02/26/2023 Inhouse Glucose Fingerstick 145 Laboratory test finding 10/28/2022 [facility] Hemoglobin A1c 6.8 % High (4.0-5.6) 1 Laboratory test finding 10/28/2022 Inhouse Glucose Fingerstick 165 Laboratory test finding 06/23/2022 Inhouse Glucose Fingerstick 124 1 MONITORING: In known diabetic patients, hemoglobin A1c targets should be discussed with health care provider. DIAGNOSTIC USE: The [place] Diabetes Association (ADA) and the World Health Organization (WHO) recommend the use of HbA1c to diagnose diabetes using a threshold of 6.5%. Patients who have an HbA1c between 5.7% and 6.4% are considered at increased risk for developing diabetes in the future. CAUTION: Falsely low HbA1c results may be observed in patients with hemolytic anemia, homozygous forms of abnormal hemoglobin (e.g. SS, CC, SC), , recent blood loss or hemoglobin F greater than 7%. Fructosamine may be used as an alternate test in these cases. REFERENCE: ADA: Standards of Medical Care in Diabetes 2020, The Journal of Clinical and Applied Research and Education Volume 43, Supplement 1 Medical Devices Description No Information Available Encounters Type Date Location Provider Dx Diagnosis Office Visit 12/05/2024 2:15p Main Office Rah Nichols M.D. E11.9 Type 2 diabetes mellitus without complications Assessments Date Code Description Provider 12/05/2024 E11.9 Type 2 diabetes mellitus without complications Rah Nichols M.D. Plan of Treatment Future Appointment(s):* 04/11/2025 2:15 pm - Rah Nichols M.D. at Main Office 12/05/2024 - Rah Nichols M.D.* E11.9 Type 2 diabetes mellitus without complications * Functional Status Description No Information Available Mental Status Description No Information Available Referrals Description No Information Available
--- OUTSIDE RECORDS SUMMARY | 2025-01-05 11:14 | XMS_ITS ---
Author Organization [facility] Address [address] [place] [phone] Care Team Providers Care Oliver Filter Operator Name Role Phone Van CHRIS, Abelardo Primary Care Provider Unavailab Siva Harden Jr REASON FOR VISIT colonoscopy Encounters Encounter Location Date Provider Diagnosis [facility] [address] [place] [phone] 01/04/2025 Siva Coates Jr PLAN OF TREATMENT Next Appt Details Provider Name:Siva reyna Jr, 02/02/2025 11:50:00 AM, [address] [place] [address] , [place], [place], [phone],
--- OUTSIDE RECORDS SUMMARY | 2025-01-05 11:14 | XMS_ITS | Patient Health Record ---
Author Organization [facility] Address [address] [place] [address] Care Team Providers Care Mercerizing Range Controller Name Role Phone Van CHRIS, Abelardo Primary Care Provider Siva Chan Jr Unavailable ALLERGIES Allergen (clinical drug ingredient) Drug/Non Drug Allergy documented on EMR Reaction Allergy Type Onset Date Status Sulfa Unknown Drug Allergy Active codeine Codeine Sulfate Unknown Drug Allergy A ctive RESULTS Component Value Reference Range Notes Leukocytes Stool Qualitative Reviewed date:09/28/2024 10:05:12 AM Interpretation: Performing Lab:[facility], [address] [place] [phone] Notes/Report: Leukocytes Stool Qualitative NEGATIVE NEGATIVE Pancreatic Elastase-1 Reviewed date:10/09/2024 04:23:21 PM Interpretation: Performing Lab:[facility], [address] [place] [phone] Notes/Report: Pancreatic Elastase-1 >800 >200 mcg/g E-1 mcg/g feces Interpretation <100 Severe exocrine pancreatic insufficiency 100-200 Mild to moderate exocrine pancreatic insufficiency >200 Normal THIS TEST WAS PERFORMED AT: [facility] [address] [place] [address] PÉREZ ODOM MD,PHD,RAFFI Fecal Fat Qualitative Reviewed date:10/09/2024 04:22:53 PM Interpretation: Performing Lab:[facility], [address] [place] [address] Notes/Report: Fecal Fat Qualitative Normal Normal THIS TEST WAS PERFORMED AT: [facility] [id number] [place] [phone] AURY STEVENS MD,PHD Ova and Parasite Reviewed date:10/09/2024 04:22:09 PM Interpretation: Performing Lab:[facility], [address] [place] [address] Notes/Report: Ova and Parasite SEE NOTE OVA AND PARASITES, CONC AND PERM SMEAR Micro Number: [id number] Test Status: Final Specimen Source: Stool Specimen Quality: Adequate CONCENTRATION 1: No ova or parasites seen TRICHROME 1: No ova or parasites seen Routine Ova and Parasite exam may not detect some parasites that occasionally cause diarrheal illness. Cryptosporidium Antigen and/or Cyclospora and Isospora Exam may be ordered to detect these parasites. One negative sample does not necessarily rule out the presence of a parasitic infection. For additional information, please refer to https://education.[employer]/faq/TON692 (This link is being provided for informational/ educational purposes only.) THIS TEST WAS PERFORMED AT: [facility] [address] [address] RACHEAL HEBERT MD GI PANEL Reviewed date:10/04/2024 08:29:30 AM Interpretation: Performing Lab:[facility], [address] [place] [phone] Notes/Report: Campylobacter Not Detected Not Detect. Plesiomonas shigelloides Not Detected Not Detect. Salmonella Not Detected Not Detect. Vibrio Not Detected Not Detect. Vibrio Cholerae Not Detected Not Detect. Yersinia enterocolitica Not Detected Not Detect. E. coli EAEC Not Detected Not Detect. E. coli EPEC Not Detected Not Detect. E. coli ETEC Not Detected Not Detect. E. coli STEC Not Detected Not Detect. E. coli O157 Not applicable Not Detect. E. coli containing the O157 antigen are a subset of Shiga-like toxin-producing E. coli (STEC). Shigella sp./EIEC Not Detected Not Detect. Cryptosporidium Not Detected Not Detect. Cyclospora cayetanensis Not Detected Not Detect. Entamoeba histolytica Not Detected Not Detect. Giardia lamblia Not Detected Not Detect. Adenovirus F 40/41 Not Detected Not Detect. Astrovirus Not Detected Not Detect. Norovirus GI/GII Not Detected Not Detect. Rotavirus A Not Detected Not Detect. Sapovirus Not Detected Not Detect. All results must be correlated with clinical findings. Negative results do not exclude the possibility of gastrointestinal infection and should not be used as the sole basis for diagnosis, treatment, or other management decisions. Virus, bacteria, and parasite nucleic acid may persist in vivo independently of organism viability. Additionally, some organisms may be carried asymptomatically. Detection of organism targets does not imply that the corresponding organisms are infectious or are the causative agents for clinical symptoms. There is a risk of false negative values due to the presence of sequence variants in the gene targets of the assay, amplification inhibitors in specimens, or inadequate numbers of organisms for amplification. The identification of several diarrheagenic E. coli pathotypes has historically relied upon phenotypic characteristics. This panel targets genetic determinants characteristic of most pathogenic strains, but may not detect all strains having phenotypic characteristics of a pathotype. The performance of this test has not been established for monitoring treatment of infection with any of the panel organisms. This assay is performed by Multiplexed PCR, utilizing the [employer] Array. REASON FOR REFERRAL No Information MEDICATIONS Medication SIG (Take, Route, Frequency, Duration) Notes Start Date End Date Status Ferrous Sulfate 325 MG as directed Orally Active Aspirin 81 81 MG 1 tablet Orally Once a day for 30 day(s) Active Omeprazole 20 MG 2 Orally Once a day 10/08/2011 Unknown Probiotic - as directed Orally Active Fish Oil 1000 MG 1 capsule Orally Onc e a day Unknown Jardiance 10 MG 1 tablet Orally Once a day Unknown Nifediac CC 30 MG 1 tablet on an empty stomach Orally Once a day for 30 day(s) Active Atorvastatin Calcium 40 MG 1 tablet Oral ly Once a day Unknown KlonoPIN 0.5 MG 1 tablet Orally Once a day Active ZyrTEC Allergy 10 MG 1 tablet Orally Onc e a day Unknown Flomax 0.4 MG 1 capsule 30 minutes after the same meal each day Orally Once a day for 30 day(s) Active Multivitamin Adults - Orally Unknown Vitamin C 1000 MG 1 tablet Orally twic e a day Unknown Bisoprolol-hydroCHLOROthiaz talia 5-6.25 MG 1 tablet Orally Once a day Unknown NIFEdipine 30 MG (OSM) 1 tablet on an em pty stomach Orally Once a day Unknown Pantoprazole Sodium 40 MG 1 tablet Orall y Once a day for 30 day(s) 03/08/2019 Unknown Quinapril HCl 40 MG 1 tablet Orally Once a day Unknown Protonix 40 MG 1 tablet 1/2 to 1 ho ur before morning meal Orally Once a day for 30 day(s) Active CoQ-10 100 MG 1 capsule with a jennifer l Orally Once a day Unknown IMMUNIZATIONS Vaccine Route Administration Date Status Comme nts Influenza Unknown 07/09/2018 Administered Influenza Unknown 09/13/2024 Administered SOCIAL HISTORY Sex Assigned At : Social History Observation Description Sex Assigned At Unknown Alcohol Screen Question Answer Notes Did you have a drink contain ing alcohol in the past year? Yes How often did you have a dri nk containing alcohol in the past year? 4 or more times a week (4 points) How many drinks did you have on a typical day when you were drinking in the past year? 1 or 2 drinks (0 point) Points 4 Interpretation Positive PROBLEMS Problem Type ICD Code Onset Dates Problem Status W/U Status Risk SNOMED Code Notes Problem Change in bowel habits (R19.4) Active confirmed 048541962 Problem Hemorrhoids, unspecified hemorrhoid type (K64.9) Active confirmed 59143509 Problem Diarrhea, unspecified type (R19.7) Active confirmed 82635046 Problem Gastroesophageal reflux disease, unspecified whether esophagitis present (K21.9) Active confirmed 928129645 VITAL SIGNS Temperature 97.1 degrees Fahrenheit 10/02/2024 Blood pressure diastolic 00 mm Hg 10/02/2024 Height 72 in 10/02/2024 Blood pressure systolic 000 mm Hg 10/02/2024 Weight 255 lbs 10/02/2024 BMI 34.58 kg/m2 10/02/2024 Encounters Encounter Location Date Provider Diagnosis [facility] [address] [place] [phone] 10/02/2024 Siva Coates Jr Diarrhea, unspecified type R19.7 and Gastroesophageal reflux disease, unspecified whether esophagitis present K21.9 [facility] [address] [place] [phone] 01/04/2025 Siva Coates Jr [facility] [address] [place] [phone] 09/12/2024 Siva Coates Jr Diarrhea, unspecified type R19.7 [facility] [address] [place] [phone] 10/09/2024 Siva Coates Jr ASSESSMENTS Encounter Date Diagnosis Assessment Notes Treatment Notes Treatment Clinical Notes 10/02/2024 Diarrhea, unspecifie d type (ICD-10 - R19.7) Diarrhea - what to ask your health care provider - adult material was printed 10/02/2024 Gastroesophageal ref lux disease, unspecified whether esophagitis present (ICD-10 - K21.9) 09/12/2024 Diarrhea, unspecifie d type (ICD-10 - R19.7) PLAN OF TREATMENT Pending Test Test Name Order Date STOOL WBC 09/12/2024 OVA & PARASITES (O&P) 09/12/2024 PANCREATIC ELASTASE 09/12/2024 FECAL FAT QUAL 09/12/2024 XR BARIUM SWALLOW-ESOPHAGUS 10/08/2011 XR GI SERIES 03/08/2019 GI PANEL 09/12/2024 Future Test Test Name Order Date UPPER GI ENDOSCOPY 03/08/2019 Next Appt Details Provider Name:Siva reyna Jr, 02/02/2025 11:50:00 AM, [address] [place] [address] , [place], [place], [phone], Insurance Providers Payer Name Payer Address Payer Phone Subscriber Number Group Number Insured Name Patient Relationship to Insured Coverage Start Date Coverage End Date [facility] [address] [place] [phone] [id number] SCOTT LOVE Self - patient is the insured MEDICAL (GENERAL) HISTORY Medical History History ICD Code Hypertension Gastroesophageal reflux dise ase, EGD 06/26, hiatal hernia with Fareed erosions Stress Coronary artery disease, history of AL w ith stent placement 11/2016 RITA/CPAP Seasonal allergies Diabetes mellitus colonoscopy 04/06/12 for heme -positive stools, findings: diverticulosis and hemorrhoids, followup optional. Surgical History Surgery Date(Month/Year) cholecystectomy stent/ one artery 11/2016
--- OUTSIDE RECORDS SUMMARY | 2025-01-05 11:14 | XMS_ITS ---
Author Organization [facility] Address [address] [place] [phone] Care Team Providers Care It Architecture Analyst Name Role Phone Van CHRIS, Abelardo Primary Care Provider UnavailSiva Miller Jr Unavailable ALLERGIES Allergen (clinical drug ingredient) Drug/Non Drug Allergy documented on EMR Reaction Allergy Type Onset Date Status Sulfa Unknown Drug Allergy Active codeine Codeine Sulfate Unknown Drug Allergy A ctive REASON FOR VISIT Patient presents today for diarrhea MEDICATIONS Medication SIG (Take, Route, Frequency, Duration) Notes Start Date End Date Status Bisoprolol-hydroCHLOROthiaz talia 5-6.25 MG 1 tablet Orally Once a day Unknown NIFEdipine 30 MG (OSM) 1 tablet on an em pty stomach Orally Once a day Unknown Fish Oil 1000 MG 1 capsule Orally Onc e a day Unknown Jardiance 10 MG 1 tablet Orally Once a day Unknown Nifediac CC 30 MG 1 tablet on an empty stomach Orally Once a day for 30 day(s) Active KlonoPIN 0.5 MG 1 tablet Orally Once a day Active Flomax 0.4 MG 1 capsule 30 minutes after the same meal each day Orally Once a day for 30 day(s) Active Protonix 40 MG 1 tablet 1/2 to 1 ho ur before morning meal Orally Once a day for 30 day(s) Active Ferrous Sulfate 325 MG as directed Orally Active Pantoprazole Sodium 40 MG 1 tablet Orall y Once a day for 30 day(s) 03/08/2019 Unknown Quinapril HCl 40 MG 1 tablet Orally Once a day Unknown CoQ-10 100 MG 1 capsule with a jennifer l Orally Once a day Unknown Aspirin 81 81 MG 1 tablet Orally Once a day for 30 day(s) Active Probiotic - as directed Orally Active Atorvastatin Calcium 40 MG 1 tablet Oral ly Once a day Unknown ZyrTEC Allergy 10 MG 1 tablet Orally Onc e a day Unknown Multivitamin Adults - Orally Unknown Vitamin C 1000 MG 1 tablet Orally twic e a day Unknown Omeprazole 20 MG 2 Orally Once a day 10/08/2011 Unknown SOCIAL HISTORY Sex Assigned At : Social [...] W/U Status Risk SNOMED Code Notes Problem Gastroesophageal reflux disease, unspecified whether esophagitis present (K21.9) Active confirmed [id number] VITAL SIGNS Temperature 97.1 degrees Fahrenheit 10/02/20 24 Blood pressure systolic 000 mm Hg 10/02/20 24 Blood pressure diastolic 00 mm Hg 024 Height 72 in 10/02/2024 Weight 255 lbs 10/02/2024 BMI 34.58 kg/m2 10/02/2024 Encounters Encounter Location Date Provider Diagnosis [facility] [address] [facility] [address] [place] [phone] 10/02/2024 Siva Coates Jr Diarrhea, unspecified type R19.7 and Gastroesophageal reflux disease, unspecified whether esophagitis present K21.9 ASSESSMENTS Encounter Date Diagnosis Assessment Notes Treatment Notes Treatment Clinical Notes 10/02/2024 Diarrhea, unspecifie d type (ICD-10 - R19.7) Diarrhea - what to ask your health care provider - adult material was printed 10/02/2024 Gastroesophageal ref lux disease, unspecified whether esophagitis present (ICD-10 - K21.9) PLAN OF TREATMENT Treatment Notes Assessment Notes Diarrhea, unspecified type Diarrhea - wh at to ask your health care provider - adult material was printed Next Appt Details Follow Up: 1 Year, Reason: Provider Name:Siva reyna Jr, 02/02/2025 11:50:00 AM, [address] [facility] , [place], [place], [phone], Progress Notes * Examination Category Sub-Category Detail Notes General Examination GENERAL APPEARANCE: in no ac ho-chunk distress HEAD: normocephalic EYES: sclera non-icteric NECK/THYROID: no lymphadenopathy HEART: S1, S2 normal, no mu rmurs CHEST: normal shape and exp ansion LUNGS: clear to auscultatio n bilaterally ABDOMEN: soft, nontender, non distended, bowel sounds present, no organomegaly SKIN: anicteric EXTREMITIES: no clubbing, cyanosi s, or edema PSYCH: cognitive function i ntact ORAL CAVITY: mucosa moist
--- OUTSIDE RECORDS SUMMARY | 2025-01-05 11:14 | XMS_ITS ---
Author Organization [facility] Address [address] [place] [phone] Care Team Providers Care Learning Coach Name Role Phone Van CHRIS, Abelardo Primary Care Provider Unavailab Siva Harden Jr REASON FOR VISIT labs Encounters Encounter Location Date Provider Diagnosis [facility] [address] [place] [phone] 10/09/2024 Siva Coates Jr PLAN OF TREATMENT Next Appt Details Provider Name:Siva reyna Jr, 02/02/2025 11:50:00 AM, [address] [place] [address] , [place], [place], [phone],
[2025-01-31 13:43] VITALS: BMI 34.6
--- NOTE | 2025-02-01 12:29 | P.CONAN_ITS ---
Documented by User: Alva Jesus NP 02/01/25 12:33 HPI - Anesthesia Eval Consult details Narrative: 79yo M for Colonoscopy Follows [facility]. Stable at 09/2024 office visit CAD s/p MO and stent 2017 Anesthesia Pre-Procedure Meds Is the patient on any of the following meds?: SGLT2 Inhib PMFSH Past Medical History Medical History Myocardial infarction BPH (benign prostatic hyperplasia) Diabetes Elevated cholesterol HTN (hypertension) Surgical History Surgical History (Updated 02/02/25 @ 11:03 by Kamille Paez, MARCO) History of back surgery Hx of right inguinal hernia repair Hx of cholecystectomy Hx of heart artery stent History of esophagogastroduodenoscopy (EGD) H/O colonoscopy Social History Social History (Updated 01/31/25 @ 13:40 by Shelby Alexander RN) Patient Tobacco Use Status: Former Tobacco user Tobacco use type: Cigarette Use of substances other than those prescribed or required for medical reasons: No Are you DNR?: No Advance Directives: No Advance Directives Information Provided: Yes Meds Allergies Allergy/AdvReac Type Severity Reaction Status Date / Time Sulfa (Sulfonamide Allergy Unknown Hives Verified 02/02/25 11:04 Antibiotics) codeine AdvReac Confusion Verified 02/02/25 11:04 Home Medications ?Medication ?Instructions ?Recorded ?Confirmed ?Last Taken ?Type aspirin 81 mg tablet,delayed 81 mg PO DAILY 01/31/25 01/31/25 01/26/25 History release atorvastatin 40 mg tablet 40 mg PO DAILY 01/31/25 01/31/25 Unknown History bisoprolol 5 1 tab PO DAILY 01/31/25 01/31/25 Unknown History mg-hydrochlorothiazide 6.25 mg tablet clonazepam 0.5 mg tablet 0.5 mg PO DAILY 01/31/25 01/31/25 Unknown History empagliflozin 10 mg tablet 10 mg PO QAM 01/31/25 01/31/25 01/29/25 History (Jardiance) lisinopril 40 mg tablet 40 mg PO DAILY 01/31/25 01/31/25 Unknown History nifedipine 30 mg tablet,extended 30 mg PO DAILY 01/31/25 01/31/25 Unknown History release pantoprazole 40 mg tablet,delayed 40 mg PO DAILY 01/31/25 01/31/25 Unknown History release (Protonix) pregabalin 25 mg capsule 25 mg PO DAILY 01/31/25 01/31/25 Unknown History sertraline 25 mg tablet 25 mg PO DAILY 01/31/25 01/31/25 Unknown History tamsulosin 0.4 mg capsule 0.4 mg PO DAILY 01/31/25 01/31/25 Unknown History tirzepatide 5 mg/0.5 mL mg subcut 02/02/25 01/26/25 History subcutaneous pen injector (Mounjaro) Exam Height,Weight and Vital Signs: Height 6 ft Weight 115.666 kg Pertinent Lab Results Pertinent Lab Results: Laboratory Tests 06/19/24 01/18/25 06:50 08:22 WBC 6.2 Hgb 14.9 Hct 44.4 Plt Count 177 D Sodium 141 Potassium 4.2 Chloride 109 H Carbon Dioxide 22 BUN 23 H Creatinine 1.13 Assessment and Plan Assessment Anesthesia Assessment: Chart Reviewed Documented by User: Naina Mitchell MD 02/02/25 11:31 PMFSH Past Medical History Medical History Myocardial infarction BPH (benign prostatic hyperplasia) Diabetes Elevated cholesterol HTN (hypertension) Family History Family history of problems with anesthesia: No Surgical History Surgical History (Updated 02/02/25 @ 11:03 by Kamille Paez RN) History of back surgery Hx of right inguinal hernia repair Hx of cholecystectomy Hx of heart artery stent History of esophagogastroduodenoscopy (EGD) H/O colonoscopy History of Problems with Anesthesia: No Social History Social History (Updated 01/31/25 @ 13:40 by Shelby Alexander RN) Patient Tobacco Use Status: Former Tobacco user Tobacco use type: Cigarette Use of substances other than those prescribed or required for medical reasons: No Are you DNR?: No Advance Directives: No Advance Directives Information Provided: Yes Meds Allergies Allergy/AdvReac Type Severity Reaction Status Date / Time Sulfa (Sulfonamide Allergy Unknown Hives Verified 02/02/25 11:04 Antibiotics) codeine AdvReac Confusion Verified 02/02/25 11:04 Home Medications ?Medication ?Instructions ?Recorded ?Confirmed ?Last Taken ?Type aspirin 81 mg tablet,delayed 81 mg PO DAILY 01/31/25 01/31/25 01/26/25 History release atorvastatin 40 mg tablet 40 mg PO DAILY 01/31/25 01/31/25 Unknown History bisoprolol 5 1 tab PO DAILY 01/31/25 01/31/25 Unknown History mg-hydrochlorothiazide 6.25 mg tablet clonazepam 0.5 mg tablet 0.5 mg PO DAILY 01/31/25 01/31/25 Unknown History empagliflozin 10 mg tablet 10 mg PO QAM 01/31/25 01/31/25 01/29/25 History (Jardiance) lisinopril 40 mg tablet 40 mg PO DAILY 01/31/25 01/31/25 Unknown History nifedipine 30 mg tablet,extended 30 mg PO DAILY 01/31/25 01/31/25 Unknown History release pantoprazole 40 mg tablet,delayed 40 mg PO DAILY 01/31/25 01/31/25 Unknown History release (Protonix) pregabalin 25 mg capsule 25 mg PO DAILY 01/31/25 01/31/25 Unknown History sertraline 25 mg tablet 25 mg PO DAILY 01/31/25 01/31/25 Unknown History tamsulosin 0.4 mg capsule 0.4 mg PO DAILY 01/31/25 01/31/25 Unknown History tirzepatide 5 mg/0.5 mL mg subcut 02/02/25 01/26/25 History subcutaneous pen injector (Jobunboris) Exam Airway Mallampati Class: III TM Dist: >3cm Neck ROM: Full Assessment and Plan Assessment Anesthesia Assessment: Anesthesia Plan Discussed Final Anesthetic Review Family History of Problems with Anesthesia: No History of Problems with Anesthesia: No NPO: Yes ASA Class: III Final Preanesthetic Review: No Changes in Pt Med Stat, Meds/Allgs Chart Review ed, Consent Obtained/Reviewed and Anes Risks/Benef Reviewed Patient Risk: Intermediate Procedure Risk: Low Anesthetic Plan Anesthetic Plan: TIVA Disposition: Standard PACU
[2025-02-02 10:40] VITALS: BP 111/51; PULSE 64; RESP 15; TEMP 36.2; O2SAT 97; BMI 34.4
[2025-02-02] MEDS: Lactated Ringers 1,000 ML 100 ML IVCONT (11:02)
[2025-02-02 11:26] LABS: Glucose, Whole Blood 136 mg/dL (60-115)
--- NOTE | 2025-02-02 11:32 | MHC.SHP ---
Pre-Procedural Eval Section A - 24 Hr Update-Section A only Date of Service: 02/02/25 Section B - Complete if H&P > 30 days Chief Complaint: Encounter for screening for malignant neoplasm of Details of Present Illness: seeH&P no changes Relevant Family History (Specify if Yes): No Relevant Social History: None Present Medications: see Short Stay Collaborative assessment Medical History: No relevant PMH History of Previous Operations: No relevant previous surgery Allergies: Allergies Allergy/AdvReac Type Severity Reaction Status Date / Time Sulfa (Sulfonamide Allergy Unknown Hives Verified 02/02/25 11:04 Antibiotics) codeine AdvReac Confusion Verified 02/02/25 11:04 Review of Systems Sugical H&P ROS: Negative: Constitution, Cardiovascular, Respiratory, Neurological, Psychiatric, Hem-Onc, Allergic/Immunologic, Gastrointestinal, Genitourinary, Musculoskeletal, Integumentary, Endocrine and Eyes/Ears/Nose/Throat Exam Surgical H&P Exam: Normal: HEENT, Normal: Heart, Normal: Lungs, Normal: Extremities, Normal: Abdomen, Normal: Skin and Normal: Neurological Plan Diagnosis/Plan: Unchanged I have reviewed the history and physical and performed a pertinent physical examination on my patient. No changes have occurred unless specified. Time Spent With Patient Time: Total time managing care of this patient today ____ minutes.
[2025-02-02 12:15] VITALS: BP 94/55; PULSE 62; RESP 15; TEMP 36.8; O2SAT 95
[2025-02-02 12:30] VITALS: BP 108/55; PULSE 58; RESP 15; TEMP 36.4; O2SAT 97
--- NOTE | 2025-02-02 13:47 | OP_ITS ---
DATE OF SERVICE: 02/02/2025 SURGEON: Siva Coates MD PREOPERATIVE DIAGNOSIS: POSTOPERATIVE DIAGNOSIS: PROCEDURE PERFORMED: Colonoscopy to the cecum with biopsy. ESTIMATED BLOOD LOSS: COMPLICATIONS: ANESTHESIA: Monitored anesthesia care. ASSISTANTS: SPECIMENS: INDICATION: Diarrhea. PROCEDURE DESCRIPTION: History and physical performed. The risks and benefits of the procedure were explained to the patient. Informed consent was obtained. The patient was placed in left lateral decubitus position. A digital rectal exam was performed and was found to be normal. The Olympus pediatric video colonoscope was introduced into the rectum and advanced to the cecum. The cecum was identified by transillumination, palpation, and identification of ileocecal valve. Examination was performed. The scope was removed. He tolerated the procedure well and was taken to the recovery area in stable condition. Abdominal wall pressure was used to assist in advancement of the scope. FINDINGS: The terminal ileum was not examined. The visualized colonic mucosa was normal. There was some stool coating the mucosa in the right colon and cecum. This limited the examination, but was washed and suctioned as best possible. No polyps were identified. The mucosa appeared normal without evidence of colitis or Crohn disease. Random biopsies were obtained from the right colon and left colon. Retroflexed examination showed internal hemorrhoids, one of which appeared inflamed. IMPRESSION: Normal colonoscopy. RECOMMENDATIONS: 1. Follow up the biopsy results. 2. Metamucil on a daily basis for improvement in bowel pattern. 3. Screening colonoscopy is recommended every 10 years for average-risk individuals. This is optional at his age. MD TJ Westfall/MODL / [phone]
== END 2025-02-02 13:09 | disposition home or self-care (01) ==
PROVIDERS: PCP Family Medicine; Visit Provider Internal Medicine Gastroenterology
PROC: 0DJD8ZZ Inspection of Lower Intestinal Tract, Via Natural or Artificial Opening Endoscopic (ICD-10-PCS; CPT 45378; principal; 2025-02-02 11:40)
DX: Z12.11 Encounter for screening for malignant neoplasm of colon (principal); K57.30 Diverticulosis of large intestine without perforation or abscess without bleeding; K64.8 Other hemorrhoids; R19.7 Diarrhea, unspecified; E11.9 Type 2 diabetes mellitus without complications; I10 Essential (primary) hypertension; I25.10 Atherosclerotic heart disease of native coronary artery without angina pectoris; I25.2 Old myocardial infarction; Z95.5 Presence of coronary angioplasty implant and graft; G47.33 Obstructive sleep apnea (adult) (pediatric); Z79.84 Long term (current) use of oral hypoglycemic drugs; Z79.85 Long-term (current) use of injectable non-insulin antidiabetic drugs; Z79.82 Long term (current) use of aspirin; Z99.89 Dependence on other enabling machines and devices; Z79.899 Other long term (current) drug therapy; Z88.2 Allergy status to sulfonamides; Z88.5 Allergy status to narcotic agent; Z90.49 Acquired absence of other specified parts of digestive tract; Z87.891 Personal history of nicotine dependence
CPT/HCPCS: 45380; 82947; 88305; J2003; J2704

== ENCOUNTER 2025-05-23 11:16 | Outpatient (AMB) | payer MEDICARE, SELFPAY ==
[2025-05-23 09:17] VITALS: BP 118/72; PULSE 62; TEMP 36.3; O2SAT 97; BMI 34.3
--- NOTE | 2025-05-23 09:17 | MHC.PC.OV ---
Vital Signs 05/23/25 09:17 Height 6 ft Weight 253 lb BMI 34.3 BP 118/72 Blood Pressure Location Lt brachial Position Sitting Pulse 62 Pulse Source Pulse Oximeter Temp 97.3 F Temp Source Axillary Pulse Oximetry (%) 97 Oxygen Delivery Method Room Air Intake Visit Reasons: Annual Lieutenant Colonel Required: No Accompanied by: Self / Same As Patient Allergies Sulfa (Sulfonamide Antibiotics) Allergy (Unknown, Verified 05/23/25 09:17) Hives codeine Adverse Reaction (Verified 05/23/25 09:17) Confusion Tobacco use date assessed: 05/23/25 Fall risk assessment: No Falls in past year Last assessed Fall Risk: 05/23/25 Dental Screening Dental Screen Date: 05/23/25 Did you have a dental visit in the last 12 months?: Yes Did you have a dental problem in the last 6 months where you did not have access to dental care?: No [facility] Medical History (Updated 05/23/25 @ 11:34 by Lucho Acosta MD) Myocardial infarction BPH (benign prostatic hyperplasia) Diabetes Elevated cholesterol HTN (hypertension) Surgical History History of back surgery Hx of right inguinal hernia repair Hx of cholecystectomy Hx of heart artery stent History of esophagogastroduodenoscopy (EGD) H/O colonoscopy (~02/02/25) Family History Mother No problems noted. Father No problems noted. Social History Housing: House Patient Tobacco Use Status: Former Tobacco user Tobacco use type: Cigarette e-Cigarette/Vaping Use: Former Use service: No Current occupational status: retired Cognitive needs: No Hearing needs: No Vision needs: Yes (reading glasses) Questionnaire PHQ-9 Over the last 2 weeks, how often have you been bothered by any of the following problems? 1. Little interest or pleasure in doing things: not at all 2. Feeling down, depressed, or hopeless: not at all 3. Trouble falling or staying asleep, or sleeping too much: not at all 4. Feeling tired or having little energy: not at all 5. Poor appetite or overeating: not at all 6. Feeling bad about yourself - or that you are a failure or have let yourself or your family down: not at all 7. Trouble concentrating on things, such as reading the newspaper or watching television: not at all 8. Moving or speaking so slowly that other people could have noticed. Or the opposite - being so fidgety or restless that you have been moving around a lot more than usual: not at all 9. Thoughts that you would be better off or of hurting yourself in some way: not at all Total score: 0 Source: Developed by Drs. Julian Patricio, Yudy Kimball, Gagan Sorto and colleagues, with an educational bree from [employer]. Thrive Questionnaire Date Thrive assessed: 05/23/25 I am a: Patient Within the past 12 months, did the food you bought not last and you didn't have the money to get more?: Never true Within the past 12 months, did you worry whether your food would run out before you got money to buy more?: Never true Do you have trouble paying for medicines?: No Do you have trouble getting transportation to medical appointments?: No Do you have trouble paying your heating and electricity bill?: No Do you have trouble taking care of your child, family member or friend?: No Do you have trouble with day-to-day activities such as bathing, preparing meals, shopping, managing finances, etc.?: No Are you currently unemployed and looking for a job?: No Are you interested in more education?: No THRIVE Score: 0 AUDIT C Alcohol Use Questionnaire (AUDIT-C) 1. How often do you have a drink containing alcohol?: Monthly or less 2. How many drinks containing alcohol do you have on a typical day when you are drinking?: 1 or 2 3. How often do you have six or more drinks on one occasion?: Less than monthly Total Score: 2 MIYA-7 AMB Questionnaire IMYA-7 Date MIYA - 7 assessed: 05/23/25 Feeling nervous, anxious, or on edge: 0 = Not at all Not being able to stop or control worryin = Not at all Worrying too much about different things: 0 = Not at all Trouble relaxin = Not at all Being so restless that it is hard to sit still: 0 = Not at all Becoming easily annoyed or irritable: 0 = Not at all Feeling afraid as if something awful might happen: 0 = Not at all Total MIYA-7 score (0-4 normal; 5-9 mild; 10-14 moderate; 15-21 severe): 0 Source: Developed by Drs. Julian Patricio, Yudy Kimball, Gagan Sorto and colleagues, with an educational bree from [employer]. Physical exam (Primary Care) Vital Signs: Last Vital Signs Temp 97.3 F 05/23/25 09:17 Pulse 62 05/23/25 09:17 BP 118/72 05/23/25 09:17 Pulse Ox 97 05/23/25 09:17 Oxygen Delivery Method Room Air 05/23/25 09:17 BMI result Body Mass Index 34.3 Tobacco/Smoking Status: Tobacco use Status Tobacco use date assessed 05/23/25 05/23/25 09:19 Patient Tobacco Use Status Former Tobacco user 05/23/25 09:19 Tobacco use type Cigarette 05/23/25 09:19 e-Cigarette/Vaping Use Former Use 05/23/25 09:19 PHQ-9: PHQ-9 Score PHQ-9: Total score 0 05/23/25 09:19 Thrive Assessment: Date of Thrive Assessment Date Thrive assessed 05/23/25 05/23/25 09:19 Coding Level of Care Code New Pt Level 4 (03654) Complex EM visit Add On G2211 Diagnoses Myocardial infarction I21.9 HTN (hypertension) I10 Diabetes E11.9 Urinary incontinence R32 Assessment & Plan Assessment & Plan (1) Myocardial infarction: Comment: 2017 w/stent-follows w/[facility] Code(s): I21.9 - Acute myocardial infarction, unspecified Category: Medical Plan: Condition is stable. (2) HTN (hypertension): Code(s): I10 - Essential (primary) hypertension Category: Medical Plan: BP is stable. Continue current medications (3) Diabetes: Code(s): E11.9 - Type 2 diabetes mellitus without complications Category: Medical Plan: A1c in range. Continue current meds (4) Urinary incontinence: Code(s): R32 - Unspecified urinary incontinence Plan: Patient wishes to see [facility] for this condition.
--- OUTSIDE RECORDS SUMMARY | 2025-05-23 12:09 | XMS_ITS | Continuity of Care Document ---
Author Organization [facility] [address] [place] [address] Phone [phone] Care Team Providers Care Map Maker Name Role Phone Abelardo Araujo M.D. Care Team Information Receive r [phone] Problems Active Problems Provider Date Type 2 diabetes mellitus Rah Nichols M.D. Onset: 06/23/2022 Hyperlipidemia Rah Nichols M.D. Onset: 0 06/23/2022 Hypertensive disorder Rah Nichols M.D. On set: 06/23/2022 Gastroesophageal reflux disease Rah corrigan M.D. Onset: 06/23/2022 Social History Type Date Description Comments Sex Male Sex Unknown Lives With Spouse ETOH Use Consumes 1 pint of liquor pe day Tobacco Use Start: Unknown End: Unknown Patient is a former smoker Smoking Status Reviewed: 08/31/23 Patient is a former smoker Allergies and adverse reactions Active Allergies Criticality Reaction Severity Comments Date Codeine Unable to assess criticality 06/23/2022 Barium Sulfate Unable to assess criticality 06/23/2022 Medications Active Medications SIG Qnty Indications Order ing Provider Date Tqblovkn9sv/0.5ML Solution Auto-Inject inject 0.5 milliliters weekly 2ml Rah Nichols M.D. 12/05/2024 Upuvid88jr Capsules 1 tab by mouth at bed 90caps Rah Nichols M.D. 02/26/2023 Atorvastatin Cjhxauu69in Tablets 1 tab by mouth every evening 270tabs Dora Jade MD Clonazepam0.5mg Tablets 1/2 tab by mouth at bed time 60tabs Abelardo Araujo M.D. Mfpqvsmzz89cc Tablets Take One Tablet By Mouth Every Morning 90tabs Rah Nichols M.D. Nifedipine ER30mg Tablets ER 24HR 1 tab by mouth every day Abelardo Araujo M.D. Quinapril UKH59dw Tablets 1 tabs by mouth every day [...] 12/05/2024 Vital Signs Date Vital Result Comment 04/11/2025 2:08pm BP Systolic 104 mmHg BP Diastolic 72 mmHg Heart Rate 72 /min Height 73 inches 6'1 Weight 252.00 lb per pt from a.m. BMI (Body Mass Index) 33.2 kg/m2 Results Test Acquired Date Facility Test Result H/L Range N ote Glucose Fingerstick 04/11/2025 Inhouse Glucose Fingerstick 151 Hemoglobin A1c 04/11/2025 Inhouse Hemoglobin A1c 6.7% Glucose Fingerstick 12/05/2024 Inhouse Glucose Fingerstick 142 Hemoglobin A1c 12/05/2024 Inhouse Hemoglobin A1c 7.3% Glucose Fingerstick 08/01/2024 Inhouse Glucose Fingerstick 185 Hemoglobin A1c 08/01/2024 Inhouse Hemoglobin A1c 6.6 % Glucose Fingerstick 03/28/2024 Inhouse Glucose Fingerstick 151 Glucose Fingerstick 08/31/2023 Inhouse Glucose Fingerstick 127 Glucose Fingerstick 02/26/2023 Inhouse Glucose Fingerstick 145 Hemoglobin A1c 10/28/2022 [facility] Hemoglobin A1c 6.8 % High (4.0-5.6) 1 Glucose Fingerstick 10/28/2022 Inhouse Glucose Fingerstick 165 Glucose Fingerstick 06/23/2022 Inhouse Glucose Fingerstick 124 1 MONITORING: In known diabetic patients, hemoglobin A1c targets should be discussed with health care provider. DIAGNOSTIC USE: The [place] Diabetes Association (ADA) and the World Health [...] Date Location Provider Dx Diagnosis Office Visit 04/11/2025 2:15p Main Office Rah Nichols M.D. E11.8 Type 2 diabetes mellitus with unspecified complications Assessments Date Code Description Provider 04/11/2025 E11.8 Complication due to diabetes mellitus Rah Nichols M.D. Plan of Treatment Future Appointment(s):* 08/21/2025 2:30 pm - Rah Nichols M.D. at Main Office 12/05/2024 - Rah Nichols M.D.* E11.9 Type 2 diabetes mellitus without complications * Functional Status Description No Information Available Mental Status Description No Information Available Referrals Description No Information Available
--- OUTSIDE RECORDS SUMMARY | 2025-05-23 12:09 | XMS_ITS | Patient Health Record ---
Author Organization [facility] Address [address] [place] [address] Care Team Providers Care International Project Engineer Name Role Phone Van (RETIRED) Abelardo CHRIS Primary Care Provider Unavailable Siva Coates Jr Unavailable [phone] Allergies Allergen (clinical drug ingredient) Drug/Non Drug Allergy documented on EMR Reaction Allergy Type Onset Date Status Sulfa Unknown Drug Allergy Active codeine Codeine Sulfate Unknown Drug Allergy A ctive Results Component Value Reference Range Notes Leukocytes Stool Qualitative Reviewed date:09/28/2024 10:05:12 AM Interpretation: Performing Lab:[facility], [address] [place] [phone] Notes/Report: Leukocytes Stool Qualitative NEGATIVE NEGATIVE Pancreatic Elastase-1 Reviewed date:10/09/2024 04:23:21 PM Interpretation: Performing Lab:[facility], [address] [place] [phone] Notes/Report: Pancreatic Elastase-1 >800 >200 mcg/g E-1 mcg/g feces Interpretation <100 Severe exocrine pancreatic insufficiency 100-200 Mild to moderate exocrine pancreatic insufficiency >200 Normal THIS TEST WAS PERFORMED AT: [facility] [address] [place] [address] PÉREZ ODOM MD,PHD,RAFFI Fecal Fat Qualitative Reviewed date:10/09/2024 04:22:53 PM Interpretation: Performing Lab:[facility], [address] [place] [phone] Notes/Report: Fecal Fat Qualitative Normal Normal THIS TEST WAS PERFORMED AT: [facility] [address] [place] [address] AURY STEVENS MD,PHD Ova and Parasite Reviewed date:10/09/2024 04:22:09 PM Interpretation: Performing Lab:[facility], [address] [place] [phone] Notes/Report: Ova and Parasite SEE NOTE OVA AND PARASITES, CONC AND PERM SMEAR Micro Number: [id number] Test Status: Final Specimen Source: Stool Specimen [...] infection. For additional information, please refer to https://education.[facility]/faq/UCQ108 (This link is being provided for informational/ educational purposes only.) THIS TEST WAS PERFORMED AT: [facility] [address] [place] [phone] RACHEAL HEBERT MD GI PANEL Reviewed date:10/04/2024 08:29:30 AM Interpretation: Performing Lab:[facility], [address] [place] [phone] Notes/Report: Campylobacter Not Detected Not Detect. Plesiomonas [...] is performed by Multiplexed PCR, utilizing the Gungroo Array. Glucose, Whole Blood Reviewed date:02/02/2025 04:05:50 PM Interpretation: Performing Lab:[address] [address] Notes/Report: Glucose, Whole Blood 136 60-115 mg/dL METER # : [id number] Pathology Reviewed date:02/10/2025 03:27:09 PM Interpretation: Performing Lab:[address] [address] Notes/Report: Reason For Referral No Information Medications Medication [...] Problem Status W/U Status Risk Notes Problem 898805291 Change in bowel habits (R19.4) Active confirmed Problem 81829041 Hemorrhoids, unspecified hemorrhoid type (K64.9) Active confirmed Problem 80662343 Diarrhea, unspecified type (R19.7) Active confirmed Problem 645196757 Gastroesophageal reflux disease, unspecified whether esophagitis present (K21.9) Active confirmed Vital Signs Temperature 97.1 degrees Fahrenheit 10/02/2024 Blood pressure diastolic 00 mm Hg 10/02/2024 Height 72 in 10/02/2024 Blood pressure systolic 000 mm Hg 10/02/2024 Weight 255 lbs 10/02/2024 BMI 34.58 kg/m2 10/02/2024 Encounters Encounter Location Date Provider Diagnosis [facility] [address] [place] [id number] 02/02/2025 Siva Moyadoreen Hall Diarrhea R19.7 [facility] [address] [place] [phone] 10/02/2024 Siva Jaxon Hall Diarrhea, unspecified type R19.7 and Gastroesophageal reflux disease, unspecified whether esophagitis present K21.9 [facility] [address] [place] [phone] 09/12/2024 Siva Acevedoord Diarrhea, unspecified type R19.7 [facility] [address] [place] [phone] 10/09/2024 Siva Jaxon Jr [facility] [address] [place] [phone] 01/04/2025 Sivashae Acevedoord Jr [facility] [address] [place] [phone] 02/10/2025 Siva Coates Jr Assessments Encounter Date Diagnosis (ICD Code) Assessment Notes Treatment Notes Treatment Clinical Notes Section Notes 02/02/2025 Diarrhea (ICD-10 - R19.7) 10/02/2024 Diarrhea, unspecified type (ICD-10 - R19.7) Diarrhea - what to ask your health care provider - adult material was printed Currently, he is doing well. Diarrhea appears improved since stopping metformin. He will remain off this and followup with his telephonic rn . We will await the rest of [...] remain off this and followup with his telephonic rn . We will await the rest of [...] Next Appt Details Provider Name:Siva reyna Jr, 01/14/2026 11:10:00 AM, [address], [address], [place], [address], Insurance Providers Payer Name Payer Address Payer Phone Subscriber Number Group Number Insured Name Patient Relationship to Insured Coverage Start Date Coverage End Date [facility] [address] [place] [phone] [id number] SCOTT LOVE Self - patient is the insured Medical (General) History Medical History History ICD Code Hypertension Gastroesophageal reflux dise ase, EGD 06/26, hiatal hernia with Fareed erosions Stress Coronary artery disease, history of IA w ith stent placement 11/2016 RITA/CPAP Seasonal allergies Diabetes mellitus colonoscopy 04/06/12 for heme -positive stools, findings: diverticulosis and hemorrhoids, followup optional. Surgical History Surgery Date(Month/Year) cholecystectomy stent/ one artery 11/2016
--- OUTSIDE RECORDS SUMMARY | 2025-05-23 12:09 | XMS_ITS | Patient Health Record ---
Author Organization [facility] Address [address] [place] [address] Care Team Providers Care English Adjunct Faculty Name Role Phone Abelardo Araujo MD Primary Care Provider UnavailElaine Marti Unavailable [phone] Allergies Allergen (clinical drug ingredient) Drug/Non Drug [...] 1000 MG 1 tablet Orally Once a day; Duration: 30 day(s) 1 tablet AM, 1 tablet PM Active Mounjaro Active Multivitamin Active ASA 1 tab Oral; Duration: 14 days 81mg Active metFORMIN HCl 1000 MG 1 tablet with a meal Orally Once a day 1 tablet AM, 1 tablet PM Not-Taking clonazePAM 0.5 MG 1 tablet at bedtime Orally Once a day Active Bisoprolol-hydroCHLOR Othiazide 5-6.25 MG 1 tablet Orally Once a day; Duration: 30 day(s) Active Atorvastatin Calcium 40 MG 1 tablet Orally Once a day; Duration: 30 day(s) Active Gabapentin 300mg three times a day orally daily; Duration: 5 days Not-Taking Cephalexin 500 MG 1 capsule Orally every 12 hrs; Duration: 5 day(s) Not-Taking ZyrTEC Allergy 10 MG 1 tablet Orally Once a day; Duration: 30 day(s) Active Jardiance 10 MG 1 tablet Orally Once a day; Duration: 30 day(s) Active Fish Oil 1000 MG 1 capsule Orally Once a day; Duration: 30 day(s) Not-Taking Quinapril HCl 40 MG 1 tablet Orally Once a day; Duration: 30 day(s) Active Lyrica Not-Taking Nifedical XL 30mg Active Magnesium 250 MG 1 tablet with a meal Orally Once a day; Duration: 30 day(s) Not-Taking Co Q 10 100 MG as directed Orally Active Protonix 40 MG 1 tablet Orally Once a day; Duration: 30 day(s) Active Cephalexin 500 MG 1 tablet Orally every 12 hrs; Duration: 10 day(s) 11/05/2021 Not-Taking Immunizations Vaccine Route [...] Problem Status W/U Status Risk Notes Problem Pressure injury of right ankle (disorder) (74728627331775) Pressure ulcer of right ankle, unstageable (L89.510) Active confirmed Problem Pressure injury of right ankle stage I (disorder) (64704700526494) Pressure ulcer of right ankle, stage 1 (L89.511) Active confirmed Problem Polyneuropathy due to type 2 diabetes mellitus (662506309) Type 2 diabetes mellitus with diabetic polyneuropathy (E11.42) Active confirmed Problem Polyneuropathy due to diabetes mellitus type I (304782359) Type 1 diabetes mellitus with diabetic polyneuropathy (E10.42) Active confirmed Problem Polyneuropathy due to type 2 diabetes mellitus (040030489) Type 2 diabetes mellitus with polyneuropathy (E11.42) Active confirmed Problem Neuropathic ulcer of right heel, 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) Active confirmed Response to treatment Problem 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) Active confirmed Response to treatment Problem Neuropathic ulcer of right ankle (103094728924773 00) 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) Active confirmed Vital Signs Blood pressure diastolic 72 mm Hg 12/27/2024 Height 6 ft in 12/27/2024 Blood pressure systolic 117 mm Hg 12/27/2024 Weight 255 lbs 12/27/2024 BMI 34.58 kg/m2 12/27/2024 Encounters Encounter Location Date Provider Diagnosis [address] [phone] 06/16/2024 Elaine Oliva Type 2 diabetes mellitus with diabetic polyneuropathy E11.42 and Pressure ulcer of right ankle, unstageable L89.[address] [address] 12/27/2024 Elaine Oliva Type 2 diabetes mellitus with diabetic polyneuropathy E11.42 ; Contusion of lesser toe of left foot with damage to nail, initial encounter S90.222A ; Tinea unguium B35.1 and Ingrown nail L60.0 [facility] [address] [place] [phone] 08/25/2024 Elaine Oliva [address] [phone] 12/11/2024 Elaine Oliva [address] [address] 12/27/2024 Elaine Oliva [address] [phone] 02/19/2025 Elaine Oliva Assessments Encounter Date Diagnosis (ICD Code) Assessment Notes Treatment Notes Treatment Clinical Notes Section Notes 06/16/2024 Pressure ulcer of right ankle, unstageable (ICD-10 - L89.510) 06/16/2024 Type 2 diabetes mellitus with diabetic polyneuropathy (ICD-10 - E11.42) 12/27/2024 Type 2 diabetes mellitus with diabetic polyneuropathy (ICD-10 - E11.42) 12/27/2024 Contusion of lesser toe of left foot with damage to nail, initial encounter (ICD-10 - S90.222A) 12/27/2024 Tinea unguium (ICD-10 - B35.1) 12/27/2024 Ingrown nail (ICD-10 - L60.0) 06/16/2024 Other Plan Of Treatment Pending Test Test Name Order Date MRI : Ankle, right 03/29/2024 X ray : Foot, right 3V 11/05/2021 X ray : Ankle, right 3V 03/29/2024 Insurance Providers Payer Name Payer Address Payer Phone Subscriber Number Group Number Insured Name Patient Relationship to Insured Coverage Start Date Coverage End Date [employer] [place] [employer] [facility] [address] [facility] [place] [address] [id number] Julian Vaughan Self - patient is the insured Medical (General) History Medical History History ICD Code Back,Hip,and Knee pain Diabetic Gall bladder problems Heart disease Hiatal hernia High blood pressure Reflux ( GERD) Measles Mumps Chicken pox Replacement Heart Valves Surgical History Surgery Date(Month/Year) gall bladder 1995
== END 2025-05-23 11:48 | disposition home or self-care (01) ==
LOC: HO.HMCHD 11:16
PROVIDERS: PCP Internal Medicine; Visit Provider Internal Medicine
DX: I21.9 Acute myocardial infarction, unspecified (principal); I10 Essential (primary) hypertension; E11.9 Type 2 diabetes mellitus without complications; R32 Unspecified urinary incontinence

== ENCOUNTER → 2025-05-23 11:16 | Outpatient (BNVA) | payer MEDICARE, SELFPAY | PROVIDERS: PCP Internal Medicine; Visit Provider Internal Medicine | DX: I10 Essential (primary) hypertension (principal); E11.9 Type 2 diabetes mellitus without complications; R32 Unspecified urinary incontinence; I25.2 Old myocardial infarction | CPT/HCPCS: 96127; 99202 ==

== ENCOUNTER 2025-08-08 13:24 | Outpatient (AMB) | payer MEDICARE, SELFPAY ==
[2025-08-08 09:51] VITALS: BP 120/70; PULSE 61; TEMP 36.3; O2SAT 97; BMI 33.9
--- NOTE | 2025-08-08 09:51 | MHC.PC.OV ---
Vital Signs 08/08/25 09:51 Height 6 ft Weight 250 lb BMI 33.9 BP 120/70 Blood Pressure Location Lt brachial Position Sitting Pulse 61 Pulse Source Pulse Oximeter Temp 97.4 F Temp Source Temporal Artery Scan Pulse Oximetry (%) 97 Oxygen Delivery Method Room Air Intake Visit Reasons: ROSANNA- Dr. Ortiz/ Dr Araujo Microwave Technician Required: No Accompanied by: Self / Same As Patient Allergies Sulfa (Sulfonamide Antibiotics) Allergy (Unknown, Verified 08/08/25 09:51) Hives codeine Adverse Reaction (Verified 08/08/25 09:51) Confusion Medication List - Last Reconciled 08/13/25 by PADILLA Dixon ascorbic acid (vitamin C) 1,000 mg PO DAILY aspirin 81 mg PO DAILY atorvastatin 40 mg PO DAILY bisoprolol-hydrochlorothiazide 5-6.25 mg 1 tab PO DAILY clonazepam take half of tab at bedtime orally daily; coQ10 (ubiquinol) (Qunol Jerry CoQ10) 100 mg PO DAILY empagliflozin (Jardiance) 10 mg PO QAM ferrous fumarate 325 mg PO DAILY Lactobacillus acidophilus (Probiotic Acidophilus) 500 mmu cells PO DAILY lisinopril 40 mg PO DAILY metformin ER 500 mg PO BID multivitamin 1 tab PO DAILY nifedipine ER 30 mg PO DAILY pantoprazole (Protonix) 40 mg PO DAILY sertraline 25 mg PO DAILY tamsulosin 0.4 mg PO DAILY Tobacco use date assessed: 08/08/25 Fall risk assessment: No Falls in past year Last assessed Fall Risk: 08/08/25 Dental Screening Dental Screen Date: 08/08/25 Did you have a dental visit in the last 12 months?: Yes Did you have a dental problem in the last 6 months where you did not have access to dental care?: No HPI HPI Comments History of Present Illness Details The patient is an 80-year-old male with DM, HTN, HLD, CAD, BPH, anemia, insomnia and GERD presenting with the management of chronic conditions including diabetes mellitus, hypertension, and hyperlipidemia. The patient has a history of diabetes mellitus and is currently on metformin and Jardiance for management. He was previously on Mounjaro but discontinued due to gastrointestinal side effects and a rash at the injection site. His blood glucose levels are currently between 150 and 200 mg/dL, and he monitors them two to three times daily. His A1C was 6.5% in January For hypertension, the patient is on a combination of bisoprolol and hydrochlorothiazide, lisinopril, and nifedipine. He experiences occasional lightheadedness, particularly in the morning, which may be related to low blood pressure readings. His BP today was 120/70. The patient is also being treated for hyperlipidemia with atorvastatin. He also takes an aspirin daily. He is treated for benign prostatic hyperplasia with tamsulosin. He reports taking pantoprazole for gastroesophageal reflux disease and clonazepam at night for anxiety and muscle spasms. He is on Iron for anemia. He is followed by Cardiology at [facility] for CAD. He has a history of allergic rhinitis for which he takes Zyrtec daily. [facility] Medical History (Updated 08/13/25 @ 09:29 by PADILLA Dixon) Anemia Anxiety BPH (benign prostatic hyperplasia) CAD (coronary artery disease) Diabetes Elevated cholesterol GERD without esophagitis HTN (hypertension) Myocardial infarction Obesity (BMI 30.0-34.9) Surgical History H/O colonoscopy (~02/02/25) History of back surgery History of esophagogastroduodenoscopy (EGD) Hx of cholecystectomy Hx of heart artery stent Hx of right inguinal hernia repair Family History (Updated 08/08/25 @ 13:40 by Mimi Franklin MA) Mother No problems noted. Father No problems noted. Social History Housing: House Patient Tobacco Use Status: Former Tobacco user Tobacco use type: Cigarette e-Cigarette/Vaping Use: Former Use service: No Current occupational status: retired Cognitive needs: No Hearing needs: No Vision needs: Yes (reading glasses) Questionnaire PHQ-9 Over the last 2 weeks, how often have you been bothered by any of the following problems? 1. Little interest or pleasure in doing things: not at all 2. Feeling down, depressed, or hopeless: not at all 3. Trouble falling or staying asleep, or sleeping too much: not at all 4. Feeling tired or having little energy: not at all 5. Poor appetite or overeating: not at all 6. Feeling bad about yourself - or that you are a failure or have let yourself or your family down: not at all 7. Trouble concentrating on things, such as reading the newspaper or watching television: not at all 8. Moving or speaking so slowly that other people could have noticed. Or the opposite - being so fidgety or restless that you have been moving around a lot more than usual: not at all 9. Thoughts that you would be better off or of hurting yourself in some way: not at all Total score: 0 Depression Screening Interpretation: Negative Depression Screening Done: Yes Source: Developed by Drs. Julian Patricio, Yudy Kimball, Gagan Sorto and colleagues, with an educational bree from [employer]. Thrive Questionnaire Date Thrive assessed: 08/08/25 I am a: Patient Within the past 12 months, did the food you bought not last and you didn't have the money to get more?: Never true Within the past 12 months, did you worry whether your food would run out before you got money to buy more?: Never true Do you have trouble paying for medicines?: No Do you have trouble getting transportation to medical appointments?: No Do you have trouble paying your heating and electricity bill?: No Do you have trouble taking care of your child, family member or friend?: No Do you have trouble with day-to-day activities such as bathing, preparing meals, shopping, managing finances, etc.?: No Are you currently unemployed and looking for a job?: No Are you interested in more education?: No THRIVE Score: 0 AUDIT C Alcohol Use Questionnaire (AUDIT-C) 1. How often do you have a drink containing alcohol?: Never 3. How often do you have six or more drinks on one occasion?: Never Total Score: 0 MIYA-7 AMB Questionnaire MIYA-7 Date MIYA - 7 assessed: 08/08/25 Feeling nervous, anxious, or on edge: 0 = Not at all Not being able to stop or control worryin = Not at all Worrying too much about different things: 0 = Not at all Trouble relaxin = Not at all Being so restless that it is hard to sit still: 0 = Not at all Becoming easily annoyed or irritable: 0 = Not at all Feeling afraid as if something awful might happen: 0 = Not at all Total MIYA-7 score (0-4 normal; 5-9 mild; 10-14 moderate; 15-21 severe): 0 Source: Developed by Drs. Julian Patricio, Yudy Kimball, Gagan Sorto and colleagues, with an educational bree from [employer]. Review of Systems Const Details: CONSTITUTIONAL Negative HEAD/NECK Negative EAR/NOSE/MOUTH/THROAT Reports allergic rhinitis, denies other allergic reactions RESPIRATORY Denies dyspnea or cough. CARDIOVASCULAR Reports occasional lightheadedness, denies chest pain or palpitations GASTROINTESTINAL Reports alternating constipation and diarrhea, primarily diarrhea, denies nausea or vomiting. MUSCULOSKELETAL Negative NEUROLOGICAL Denies headaches or dizziness. PSYCHIATRIC Negative Physical exam (Primary Care) Vital Signs: Last Vital Signs Temp 97.4 F 08/08/25 09:51 Pulse 61 08/08/25 09:51 BP 120/70 08/08/25 09:51 Pulse Ox 97 08/08/25 09:51 Oxygen Delivery Method Room Air 08/08/25 09:51 BMI result Body Mass Index 33.9 GENERAL Well developed, obese, in no apparent distress HEENT Head-Normocephalic Eyes- PERRLA, EOMI, Conjuctiva clear, lids WNL Ears- Canals clear, TMs WNL Mouth/Throat-No lesions, no erythema, no exudate Neck- Supple, No lymphadenopathy, thyroid WNL RESPIRATORY Normal I:E, Clear to auscultation CARDIOVASCULAR Regular, rate and rhythm, No murmurs or rubs GASTROINTESTINAL Soft, nontender, normal bowel sounds, no masses MUSCULOSKELETAL Back- nontender Joints- no pain swelling or deformity NEUROLOGICAL Gait normal PSYCHIATRIC Oriented to person, place and time Mood and affect WNL Appearance WNL Speech WNL Thought processes WNL Tobacco/Smoking Status: Tobacco use Status Tobacco use date assessed 08/08/25 08/08/25 09:52 Patient Tobacco Use Status Former Tobacco user 08/08/25 09:52 Tobacco use type Cigarette 08/08/25 09:52 e-Cigarette/Vaping Use Former Use 08/08/25 09:52 PHQ-9: PHQ-9 Score PHQ-9: Total score 0 08/08/25 13:57 Depression Screening Interpretation: Negative Thrive Assessment: Date of Thrive Assessment Date Thrive assessed 08/08/25 08/08/25 09:52 Coding Level of Care Code Established Pt Est Pt Level 4 (16736) Patient Type Established Diagnoses Diabetes E11.9 Diabetes mellitus type: type 2 Diabetes mellitus complication status: with circulatory complication Diabetes mellitus complication detail: with other circulatory complications Primary hypertension I10 Hypertension type: primary hypertension CAD (coronary artery disease) I25.10 GERD without esophagitis K21.9 Anxiety F41.9 Elevated cholesterol E78.00 Anemia D64.9 BPH (benign prostatic hyperplasia) N40.0 Obesity (BMI 30.0-34.9) E66.811 Time Spent (min) 35 Comment Time spent on chart review, medication reconciliation, H&P, patient education and orders. Assessment & Plan Assessment & Plan (1) Diabetes: Comment: A1C in January was 6.5% Code(s): E11.9 - Type 2 diabetes mellitus without complications Category: Medical Qualifiers: Diabetes mellitus type: type 2 Diabetes mellitus complication status: with circulatory complication Diabetes mellitus complication detail: with other circulatory complications Plan: The patient is currently managing diabetes mellitus with metformin and Jardiance, having discontinued Mounjaro due to adverse effects. Blood glucose levels are monitored two to three times daily, with readings between 150 and 200 mg/dL. The patient is scheduled to see an clinical program consultant for further management. (2) HTN (hypertension): Comment: BP today was 120/70 Code(s): I10 - Essential (primary) hypertension Category: Medical Qualifiers: Hypertension type: primary hypertension Qualified Code(s): I10 - Essential (primary) hypertension Plan: Hypertension is managed with a combination of bisoprolol and hydrochlorothiazide, lisinopril, and nifedipine. The patient experiences occasional lightheadedness, possibly related to low blood pressure, and is awaiting further evaluation by a powerhouse oiler. Patient will continue current medications. Will monitor. Patient will follow up in 3 months. (3) CAD (coronary artery disease): Code(s): I25.10 - Atherosclerotic heart disease of [place] coronary artery without angina pectoris Category: Medical Plan: Patient is followed by Cardiology at [facility] (4) GERD without esophagitis: Code(s): K21.9 - Gastro-esophageal reflux disease without esophagitis Category: Medical Plan: Gastroesophageal reflux disease is managed with pantoprazole. Patient will continue current medications. Will monitor. Patient will follow up in 3 months. (5) Anxiety: Code(s): F41.9 - Anxiety disorder, unspecified Category: Medical Plan: Anxiety is managed with clonazepam, taken at night for muscle spasms and sleep. Patient will continue current medications. Will monitor. Patient will follow up in 3 months. (6) Elevated cholesterol: Code(s): E78.00 - Pure hypercholesterolemia, unspecified Category: Medical Plan: Hyperlipidemia is managed with atorvastatin. Patient will continue current medications. Will monitor. Patient will follow up in 3 months. (7) Anemia: Code(s): D64.9 - Anemia, unspecified Category: Medical Plan: Patient is on Iron for anemia. Patient will continue current medications. Will monitor. Patient will follow up in 3 months. (8) BPH (benign prostatic hyperplasia): Code(s): N40.0 - Benign prostatic hyperplasia without lower urinary tract symptoms Category: Medical Plan: Benign prostatic hyperplasia is managed with tamsulosin. Patient will continue current medications. Will monitor. Patient will follow up in 3 months. (9) Obesity (BMI 30.0-34.9): Comment: BMI today was 33.9 Code(s): E66.811 - Obesity, class 1 Category: Medical Plan: Discussed the health risks of obesity with the patient. Reviewed benefits of even moderate weight loss with the patient. Patient will gradually try and increase exercise to 30-40 min 5-7 times per week. We discussed the patient adding more fruits and vegetables to their diet. Will monitor weight and follow up in 3 months. Plan During the visit, we discussed the management of the patient's chronic conditions, including diabetes, hypertension, and hyperlipidemia. The patient is scheduled to see an clinical program consultant for diabetes management and a powerhouse oiler for hypertension evaluation. We also reviewed the patient's medication regimen and addressed the need for prescription refills. Medications: New nifedipine ER 30 mg PO DAILY 90 tabs 1RF Patient Instructions: - Continue current medications as prescribed. - Monitor blood glucose levels two to three times daily. - Follow up with the clinical program consultant and powerhouse oiler as scheduled. - Contact the office if experiencing any new or worsening symptoms.
--- OUTSIDE RECORDS SUMMARY | 2025-08-08 14:36 | XMS_ITS | Continuity of Care Document ---
Author Organization [facility] [address] [place] [address] Phone [phone] Care Team Providers Care Director Pharmacology Name Role Phone Abelardo Araujo M.D. Care Team Information Receive r [phone] Problems Active Problems Provider Date Type 2 [...] SIG Qnty Indications Order ing Provider Date Eixuiwyzs8ig Tablets 1 tablet by mouth every day 90tabs Rah Nichols M.D. 08/03/2025 Metformin HCL [id number] Tablets ER 24HR 1 tablet by mouth twice daily 180tabs Rah Nichols M.D. 07/27/2025 Ppcxlkxq7bs/0.5ML Solution Auto-Inject inject 0.5 milliliters weekly 2ml Rah Nichols M.D. 12/05/2024 Srfybu17zm Capsules 1 tab by mouth at bed 90caps Rah Nichols M.D. 02/26/2023 Atorvastatin Efmuhly71dl Tablets 1 tab by mouth every evening 270tabs Dora Jade MD Clonazepam0.5mg Tablets 1/2 tab by mouth at bed time 60tabs Abelardo Araujo M.D. [id number] Tablets Take One Tablet By Mouth Every Morning 90tabs Rah Nichols M.D. Nifedipine ER30mg Tablets ER 24HR 1 tab by mouth every day Abelardo Araujo M.D. Quinapril [id number] Tablets 1 tabs by mouth every day [...] Inhouse Glucose Fingerstick 145 Hemoglobin A1c 10/28/2022 [facility] Hemoglobin A1c 6.8 % High (4.0-5.6) 1 Glucose Fingerstick 10/28/2022 Inhouse Glucose Fingerstick 165 Glucose Fingerstick 06/23/2022 Inhouse Glucose Fingerstick 124 1 MONITORING: In known diabetic patients, hemoglobin A1c targets should be discussed with health care provider. DIAGNOSTIC USE: The [place] [employer] (ADA) and the World Health [...]
== END 2025-08-08 15:17 | disposition home or self-care (01) ==
LOC: HO.HMCHD 13:24
PROVIDERS: PCP Internal Medicine; Visit Provider Physician Assistant Medical
DX: E11.9 Type 2 diabetes mellitus without complications (principal); I10 Essential (primary) hypertension; I25.10 Atherosclerotic heart disease of native coronary artery without angina pectoris; K21.9 Gastro-esophageal reflux disease without esophagitis; F41.9 Anxiety disorder, unspecified; E78.00 Pure hypercholesterolemia, unspecified; D64.9 Anemia, unspecified; N40.0 Benign prostatic hyperplasia without lower urinary tract symptoms; E66.811 Obesity, class 1

== ENCOUNTER → 2025-08-08 13:24 | Outpatient (BNVA) | payer MEDICARE, SELFPAY | PROVIDERS: PCP Internal Medicine; Visit Provider Physician Assistant Medical | DX: K21.9 Gastro-esophageal reflux disease without esophagitis (principal); E11.9 Type 2 diabetes mellitus without complications; I10 Essential (primary) hypertension; E78.5 Hyperlipidemia, unspecified; I25.10 Atherosclerotic heart disease of native coronary artery without angina pectoris; F41.9 Anxiety disorder, unspecified; E78.00 Pure hypercholesterolemia, unspecified; D64.9 Anemia, unspecified; N40.0 Benign prostatic hyperplasia without lower urinary tract symptoms; E66.811 Obesity, class 1; Z79.84 Long term (current) use of oral hypoglycemic drugs; Z79.899 Other long term (current) drug therapy; Z68.33 Body mass index [BMI] 33.0-33.9, adult | CPT/HCPCS: 96127; 99212 ==